=== PATIENT | female | born 1950 | race Caucasian/White ===

== ENCOUNTER 2024-03-29 09:15 | Inpatient (IN) | payer OTHER, MEDICAID ==
[~2024-03-29] VITALS: Ht 160 cm; Wt 60.0 kg
--- NOTE | 2024-03-29 09:34 | ED.PDOC ---
HPI Comments 74 year old female NIKOLAI presents to the ED with chief complaint of syncope. EMS reports according to family of patient, patient went to the bathroom and had a syncopal episode when getting up from the toilet. EMS relays patient was found to be on the floor of the bathroom and patient has had one word responses along with appearing very fatigued. EMS states when patient was lifted up, she had another syncopal episode. EMS notes patient has history of Rhabdomyolysis and is currently wheelchair bound due to not having a lot of strength in her legs. Patient denies any chest pain, SOB, dizziness, N/V/D, or fever. Time Seen by MD: 09:30 Reviewed Notes: Nurses Notes, Medications, Allergies Information Source: Patient, Emergency Med Personnel Mode of Arrival: EMS Severity: Moderate Timing: Hours Duration: Since onset Prehospital treatment: None Onset: At Rest Cardiac Risk Factors: Hyperlipidemia PE Risk Factors: None Associated Signs and Symptoms: Syncope Past Medical History PAST MEDICAL HISTORY: High Lipids Surgical History: Denies all surgeries CONFIDENTIAL SECRETARY History: Denies all CONFIDENTIAL SECRETARY Hx Family History Family History: Reviewed,noncontributory to illness Social History Smoker: Non-Smoker Alcohol: Denies ETOH Use Drugs: Denies Drug Use Lives In: Home Constitutional: reports: fatigue; denies: chills, diaphoresis, fever, malaise, sweats, weakness, others EENTM: denies: blurred vision, double vision, ear bleeding, ear discharge, ear drainage, ear pain, ear ringing, eye pain, eye redness, hearing loss, mouth pain, mouth swelling, nasal discharge, nose bleeding, nose congestion, nose pain, photophobia, tearing, throat pain, throat swelling, voice changes, others Respiratory: denies: cough, hemoptysis, orthopnea, SOB at rest, shortness of breath, SOB with excertion, stridor, wheezing, others Cardiovascular: reports: syncope; denies: chest pain, dizzy spells, diaphoresis, Dyspnea on exertion, edema, irregular heart beat, left arm pain, lightheadedness, palpitations, PND, others Gastrointestinal: denies: abdomen distended, abdominal pain, blood streaked bowels, constipated, diarrhea, dysphagia, difficulty swallowing, hematemesis, melena, nausea, poor appetite, poor fluid intake, rectal bleeding, rectal pain, vomiting, others Genitourinary: denies: abnormal vagina bleeding, burning, dyspareunia, dysuria, flank pain, frequency, hematuria, incontinence, pain, , vagina discharge, urgency, others Neurological: denies: dizziness, fainting, headache, left sided numbness, left sided weakness, numbness, paresthesia, pre-existing deficit, right sided numbness, right sided weakness, seizure, speech problems, tingling, tremors, weakness, others Musculoskeletal: denies: back pain, gout, joint pain, joint swelling, muscle pain, muscle stiffness, neck pain, others Integumetry: denies: bruises, change in color, change in hair/nails, dryness, laceration, lesions, lumps, rash, wounds, others Allergic/Immunocompromised: denies: Difficulty Healing, Frequent Infections, Hives, Itching, others Hematologic/Lymphatic: denies: anemia, blood clots, easy bleeding, easy bruising, swollen glands, others Endocrine: denies: excessive hunger, excessive sweating, excessive thirst, excessive urination, flushing, intolerance to cold, intolerance to heat, unexplained weight gain, unexplained weight loss, others Psychiatric: denies: anxiety, bipolar disorder, depression, hopeless, panic disorder, schizophrenia, sleepless, suicidal, others All Other Systems: Reviewed and Negative Physical Exam General Appearance: Moderate Distress, Normal HEENT: Normal ENT Inspection, PERRL/EOMI Neck: Full Range of Motion, Non-Tender, Normal, Normal Inspection Respiratory: Chest Non-Tender, Lungs Clear, No Accessory Muscle Use, No Respiratory Distress, Normal Breath Sounds Cardiovascular: No Edema, No JVD, No Murmur, No Gallop, Normal Peripheral Pulses, Regular Rate/Rhythm Breast Exam: Deferred Gastrointestinal: No Organomegaly, Non Tender, No Pulsatile Mass, Normal Bowel Sounds, Soft Genitalia: Deferred Pelvic: Deferred Rectal: Deferred Extremities: No calf tenderness, Normal capillary refill, Normal inspection, Normal range of motion, Non-tender, No pedal edema Musculoskeletal : Apperance: Normal Neurologic: Alert, fast 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 Was a procedure done?: No CP Differential Dx Differential Diagnosis: A-fib, A-Flutter, Angina, Anxiety / Panic Attack, Atrial Dysrhythmia, Electrolyte Disorder X-Ray, Labs, Meds, VS Vital Signs Date Time Temp Pulse Resp B/P (MAP) Pulse Ox O2 Delivery O2 Flow Rate FiO2 03/29/24 09:56 97.8 68 14 130/72 (91) 96 03/29/24 09:44 62 18 113/50 (71) 98 03/29/24 09:25 65 Lab Test 03/29/24 09:38 Range/Units White Blood Count 7.9 4.4-10.8 10^3/uL Red Blood Count 5.04 4.0-5.20 10^6/uL Hemoglobin 14.5 12.2-16.2 g/dL Hematocrit 45.0 36.0-46.0 % Mean Corpuscular Volume 89.3 80.0-100.0 fL Mean Corpuscular Hemoglobin 28.8 28.0-32.0 pg Mean Corpuscular Hemoglobin Concent 32.2 32.0-36.0 g/dL Red Cell Distribution Width 16.3 H 11.8-14.3 % Platelet Count 338 140-450 10^3/uL Mean Platelet Volume 7.0 6.9-10.8 fL Neutrophils (%) (Auto) 60.8 37.0-80.0 % Lymphocytes (%) (Auto) 33.3 10.0-50.0 % Monocytes (%) (Auto) 5.4 0.0-12.0 % Eosinophils (%) (Auto) 0.3 0.0-7.0 % Basophils (%) (Auto) 0.2 0.0-2.0 % Neutrophils # (Auto) 4.8 1.6-8.6 10 ^3/uL Lymphocytes # (Auto) 2.6 0.4-5.4 10 ^3/uL Monocytes # (Auto) 0.4 0-1.3 10 ^3/uL Eosinophils # (Auto) 0 0-0.8 10 ^3/uL Basophils # (Auto) 0 0-0.2 10 ^3/uL Nucleated Red Blood Cells 0.1 % Sodium Level 142 136-145 mmol/L Potassium Level 4.3 3.5-5.1 mmol/L Chloride Level 106 98-107 mmol/L Carbon Dioxide Level 31 20-31 mmol/L Anion Gap 5 5-15 Blood Urea Nitrogen 12 9-23 mg/dL Creatinine 0.51 L 0.550-1.02 mg/dL Glomerular Filtration Rate Calc 99 >90 mL/min BUN/Creatinine Ratio 23.5 H 10.0-20.0 Serum Glucose 108 H 74-106 mg/dL Calcium Level 9.4 8.7-10.4 mg/dL Creatine Kinase 2007 H 34-145 U/L Troponin I High Sensitivity 41 *H </=34 ng/L Current Medications Medications (Trade) Dose Ordered Sig/Fareed Route Start Time Stop Time Status Last Admin Sodium Chloride 1,000 ml @ 1,000 mls/hr Q1H ONCE IV 03/29/24 09:30 03/29/24 10:29 DC 03/29/24 09:44 Sodium Chloride 1,000 ml @ 1,000 mls/hr Q1H ONCE IV 03/29/24 11:45 03/29/24 12:44 DC 03/29/24 12:14 Enoxaparin Sodium (Lovenox) 70 mg ONCE ONCE SC 03/29/24 11:45 03/29/24 11:46 DC 03/29/24 12:14 Patient alert. Possible syncope. Moving all extremities. Vitals stable. CK elevated pain Rhabdomyolysis. Cardiac marker elevated. EKG reviewed does not show any acute changes. Establish intravenous access. Was given fluids. Was given bicarb. Nephrology consultation. History of rhabdomyolysis. Was given Lovenox. Reviewed her previous visit. Explained to the patient. Continue cardiac monitoring. Perry approved inpatient admission [id number]. Time of 1ST Reevaluation: 10:30 Reevaluation 1ST: Unchanged Patient Education/Counseling: Diagnosis, Treatment Family Education/Counseling: No Family Present Departure 1 Departure Time of Disposition: 11:32 Impression: Primary Impression: Syncope Qualified Codes: R55 - Syncope and collapse Additional Impressions: Rhabdomyolysis Qualified Codes: M62.82 - Rhabdomyolysis Demand ischemia Disposition: ADMITTED INPATIENT Admit to: Med Surg Condition: Guarded Critical Care Note Critical Care Time?: Yes (90 min-critical care time only) Stability Stability form required: No Heart Score Heart Score: Heart Score Response (Comments) Value History Moderate Suspicious 1 EKG Normal 0 Age >65 2 Risk Factors 1 or 2 risk factors 1 Troponin 1-2 x's Normal limit 1 Total 5 I personally scribed for DAYAN PADRON MD ([email or web address]) on 03/29/24 at 09:34. Electronically submitted by Juan Pablo Peacock ([email or web address]). DAYAN PADRON MD Mar 29, 2024 09:34
[2024-03-29] MEDS: SODIUM CHLORIDE 0.9% 1,000 ML IV ONE ×3 (09:44→22:23)
[2024-03-29 10:08] LABS: Basophils # (auto) 0 10 ^3/uL (0-0.2); Basophils % (auto) 0.2 % (0.0-2.0); Eosinophils # (auto) 0 10 ^3/uL (0-0.8); Eosinophils % (auto) 0.3 % (0.0-7.0); Hemoglobin 14.5 g/dL (12.2-16.2); Lymphocytes # (auto) 2.6 10 ^3/uL (0.4-5.4); Lymphocytes % (auto) 33.3 % (10.0-50.0); Mean Corpuscular Hemoglobin 28.8 pg (28.0-32.0); Mean Corpuscular Hgb Conc. 32.2 g/dL (32.0-36.0); Mean Corpuscular Volume 89.3 fL (80.0-100.0); Monocytes # (auto) 0.4 10 ^3/uL (0-1.3); Monocytes % (auto) 5.4 % (0.0-12.0); Neutrophils # (auto) 4.8 10 ^3/uL (1.6-8.6); Neutrophils % (auto) 60.8 % (37.0-80.0); Nucleated Red Blood Cells % 0.1 %; Platelet Count (auto) 338 10^3/uL (140-450); Red Blood Cells 5.04 10^6/uL (4.0-5.20); Red Cell Distribution Width 16.3 % (11.8-14.3); White Blood Cell 7.9 10^3/uL (4.4-10.8)
[2024-03-29 10:12] LABS: Chloride 106 mmol/L (98-107); Potassium 4.3 mmol/L (3.5-5.1); Sodium 142 mmol/L (136-145)
[2024-03-29 10:13] LABS: Anion Gap 5 (5-15); Calcium 9.4 mg/dL (8.7-10.4)
[2024-03-29 10:18] LABS: BUN/Creatinine Ratio 23.5 (10.0-20.0); Blood Urea Nitrogen 12 mg/dL (9-23)
[2024-03-29 10:37] LABS: Carbon Dioxide 31 mmol/L (20-31); Creatine Kinase IFCC 2007 U/L (34-145); Glucose 108 mg/dL (74-106)
[2024-03-29] MEDS: ENOXAPARIN SOD 80 MG/0.8ML SYRINGE SC ONE (12:14)
[2024-03-29] MEDS ORDERED: NITROGLYCERIN 0.4 MG SL TAB SL PRN (15:15)
[2024-03-29] MEDS: SODIUM CHLORIDE 0.9% 1,000 ML IV SCH (15:15)
[2024-03-29] MEDS ORDERED: ONDANSETRON HCL 4 MG/2 ML VIAL IV PRN (15:15)
[2024-03-29] MEDS ORDERED: MORPHINE SULFATE INJ 2 MG/ml SYRG IV PRN (15:15)
--- NOTE | 2024-03-29 15:25 | DVHHP2 ---
History of Present Illness Reason for Visit: Syncope History of Present Illness Ysabel Drake is a 74-year-old female with past medical history of hyperlipidemia and rhabdomyolysis who presents to the ED today for syncope x1 day. Patient states that she was in the bathroom having a bowel movement and daughter reports that she had a blank stare for about 10 minutes then came to. Patient reports that she was started on atorvastatin 1 year ago by her doctor at [facility] in [place] and states that she never had high cholesterol. Patient reports that 6 weeks ago she went to [facility] in [place] for a wellness checkup and her LFTs were high, her physician of advised her to come in every 3 days to get her LFTs checked and [place] [id number]. Then she was hospitalized in [place] for 1 week was given IVIG therapy for 3 days consistently. Patient states she then was discharged and then got readmitted again at [facility] in [place] for 5 days for weakness and also given IVIG therapy for 3 days consistently. Then was discharged to rehab for 2 weeks and got released yesterday. Patient is here today for evaluation. Patient denies any fevers, chills, chest pain, shortness of breath, abdominal pain, nausea, vomiting, diarrhea, dizziness, numbness, tingling, and paresthesia. Patient reports that she just recently moved in with her daughter because she is unable to care for herself because of the ongoing issue. Patient also reports that she is voiding just fine. 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) Family History: Other (Dad has Alzheimer's and of pneumonia at 76 years of age, mom of pancreatic cancer at 83 years of age, sister had cervical cancer in her 30s, and daughter has thyroid cancer living) Smoke: No ALCOHOL: occassional Drugs: None Lives: with Family Domestic Violence: Neg Review of Systems Constitutional: Yes: Weakness (Legs bilateral); No: Fever, Chills, Sweats, Malaise, Other Eyes: No: Pain, Vision change, Conjunctivae inflammation, Eyelid inflammation, Other, Redness ENT: No: Ear pain, Ear discharge, Nose pain, Nose discharge, Nose congestion, Mouth pain, Mouth swelling, Throat pain, Throat swelling, Other Respiratory: No: Cough, Dry, Shortness of breath, SOB with excertion, Wheezing, Hemoptysis, Pleuritic Pain, Sputum, Wheezing, Other Cardiovascular: No: Chest Pain, Palpitations, Orthopnea, Paroxysmal Noc. Dyspn ea, Edema, Lt Headedness, Other Gastrointestinal: No: Nausea, Vomiting, Abdominal Pain, Diarrhea, Constipation, Melena, Hematochezia, Other Genitourinary: No Dysuria, No Frequency, No Incontinence, No Hematuria, No Retention, No Other Musculoskeletal: No: other, neck pain, shoulder pain, arm pain, back pain, hand pain, leg pain, foot pain Skin: No: Rash, Lesions, Jaundice, Bruising, Other Neurological: No: Weakness, Numbness, Incoordination, Change in speech, Confusion, Seizures, Other Allergies: Coded Allergies: NO KNOWN ALLERGIES (Unverified , 03/29/24) Medications Current Medications Medications Dose Ordered Sig/Fareed Route Start Time Stop Time Status Last Admin Dose Admin Sodium Chloride 1,000 ml @ 100 mls/hr Q10H IV 03/29/24 15:15 UNV Enoxaparin Sodium 70 mg Q12HR SC 03/29/24 22:00 UNV Ondansetron HCl 4 mg Q4HP PRN IV 03/29/24 15:15 UNV Acetaminophen 650 mg Q6HP PRN PO 03/29/24 15:15 UNV Nitroglycerin 0.4 mg Q5MINP PRN SL 03/29/24 15:15 UNV Morphine Sulfate 2 mg Q30M PRN IV 03/29/24 15:15 UNV Exam Vital Signs Vital Signs Date Time Temp Pulse Resp B/P (MAP) Pulse Ox O2 Delivery O2 Flow Rate FiO2 03/29/24 13:04 98.1 72 16 138/68 (91) 96 98.1 General Appearance: Alert, Oriented X3, Cooperative, No acute distress HEENT: Atraumatic, PERRLA, EOMI, Mucous membr. moist/pink Respiratory: Clear to auscultation, Normal air movement Cardiovascular: Regular rate, Normal S1, Normal S2, No murmurs Abdominal: Normal bowel sounds, Soft, No tenderness, No hepatospenomegaly, No masses Extremities: No clubbing, No cyanosis, No edema, Normal pulses, No tenderness/swelling Skin: No rashes, No breakdown, No significant lesion Neuro: Normal speech, Strength at 5/5 X4 ext, Normal tone, Sensation intact, Other (Patient reports that legs are weak however better than 6 weeks ago.) Psych/Mental Status: Mental status NL, Mood NL Labs/Xrays Labs Test 03/29/24 09:38 Range/Units White Blood Count 7.9 4.4-10.8 10^3/uL Red Blood Count 5.04 4.0-5.20 10^6/uL Hemoglobin 14.5 12.2-16.2 g/dL Hematocrit 45.0 36.0-46.0 % Mean Corpuscular Volume 89.3 80.0-100.0 fL Mean Corpuscular Hemoglobin 28.8 28.0-32.0 pg Mean Corpuscular Hemoglobin Concent 32.2 32.0-36.0 g/dL Red Cell Distribution Width 16.3 H 11.8-14.3 % Platelet Count 338 140-450 10^3/uL Mean Platelet Volume 7.0 6.9-10.8 fL Neutrophils (%) (Auto) 60.8 37.0-80.0 % Lymphocytes (%) (Auto) 33.3 10.0-50.0 % Monocytes (%) (Auto) 5.4 0.0-12.0 % Eosinophils (%) (Auto) 0.3 0.0-7.0 % Basophils (%) (Auto) 0.2 0.0-2.0 % Neutrophils # (Auto) 4.8 1.6-8.6 10 ^3/uL Lymphocytes # (Auto) 2.6 0.4-5.4 10 ^3/uL Monocytes # (Auto) 0.4 0-1.3 10 ^3/uL Eosinophils # (Auto) 0 0-0.8 10 ^3/uL Basophils # (Auto) 0 0-0.2 10 ^3/uL Nucleated Red Blood Cells 0.1 % Sodium Level 142 136-145 mmol/L Potassium Level 4.3 3.5-5.1 mmol/L Chloride Level 106 98-107 mmol/L Carbon Dioxide Level 31 20-31 mmol/L Anion Gap 5 5-15 Blood Urea Nitrogen 12 9-23 mg/dL Creatinine 0.51 L 0.550-1.02 mg/dL Glomerular Filtration Rate Calc 99 >90 mL/min BUN/Creatinine Ratio 23.5 H 10.0-20.0 Serum Glucose 108 H 74-106 mg/dL Calcium Level 9.4 8.7-10.4 mg/dL Creatine Kinase 2007 H 34-145 U/L Troponin I High Sensitivity 41 *H </=34 ng/L Assessment/Plan Assessment/Plan Assessment/Plan: Syncope elevated CK Rhabdomyolysis labs am labs ekg ivf NaHCO3 - ordered by ER nephro cx - ordered by ER UA trend trop lipid Pain management Antiemetics HLD hold statin - patient reports poss cause of rhabdomyolysis FEN/PPX diet IVf DVT ppx - lovenox PUD ppx not indicated patient has no history of GERD or GI bleed Discussed plan of care with patient and nurse Home medications reconciled Admit to tele Plan discussed with: Patient, Daughter My Orders Orders - 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 Procedure Category Date Status Time Sodium Chloride 0.9% PHA 03/29/24 Logged 15:15 Enoxaparin Sodium PHA 03/29/24 Logged (Lovenox) 22:00 Admit ADMIT 03/29/24 Transmitted 15:07 Allergies [facility] 03/29/24 In Process 15:07 Code Status CODE 03/29/24 Transmitted 15:07 Ondansetron Hcl PHA 03/29/24 Logged (Zofran) 15:15 Complete Blood Count LAB 03/30/24 Verified 04:00 Comprehensive LAB 03/30/24 Verified Metabolic Panel 04:00 Cardiac DIET 03/29/24 Transmitted Diet-2gna,Lofat,Lochol Dinner Acetaminophen Tablet PHA 03/29/24 Logged (Tylenol Tablet) 15:15 Nitroglycerin PHA 03/29/24 Logged Sublingual (Ntrostat 15:15 Morphine Sulfate PHA 03/29/24 Logged Injection 15:15 Stat Ekg For Chest [facility] 03/29/24 In Process Pain 15:07 Notify Md Of Changes [facility] 03/29/24 In Process From Base 15:07 Information Technology Technician For [facility] 03/29/24 In Process 24 Hours 15:07 Emergency Dysrhythmia [facility] 03/29/24 In Process Protocol 15:07 Rhythm Strips Once [facility] 03/29/24 In Process Every Shift 15:07 Oxygen By Nasal RT 03/29/24 Transmitted Cannula 15:07 Browning Processor [facility] 03/29/24 In Process 15:07 Lipid Panel LAB 03/29/24 Logged 15:11 Troponin-I Hs LAB 03/29/24 Logged 15:11 Troponin-I Hs LAB 03/29/24 Logged 16:11 Troponin-I Hs LAB 03/29/24 Logged 18:11 Date of Service: Mar 29, 2024 Billing Provider: NGUYEN VILLALBA Common Visit Codes: [id number] INP/OBS CARE (MOD) NGUYEN VILLALBA Mar 29, 2024 15:25
[2024-03-29 16:06] LABS: Triglycerides 149 mg/dL (< 150)
[2024-03-29 16:08] LABS: Cholesterol 195 mg/dL (< 200)
[2024-03-29 16:10] LABS: HDL Cholesterol 61 mg/dL (40-59); LDL Cholesterol 115 mg/dL (< 100)
--- NOTE | 2024-03-29 18:50 | ECG ---
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
[2024-03-29] MEDS: SODIUM BICARB 8.4% 50Meq/50ml SYR Vial IV ONE (22:24)
[2024-03-29] MEDS: ENOXAPARIN SOD 100 MG/1 ML SYRINGE SC SCH (22:30)
[2024-03-29 22:50] VITALS: PULSE 84; RESP 13; O2SAT 97
[2024-03-29 23:01] VITALS: PULSE 85; RESP 18; O2SAT 95
[2024-03-29] MEDS ORDERED: PRED20TA2 PO (23:15)
[2024-03-29] MEDS ORDERED: OMEP1CAP70 PO (23:15)
[2024-03-29] MEDS ORDERED: ONDA-188 PO (23:16)
[2024-03-29] MEDS ORDERED: POLY335015 PO (23:19)
[2024-03-29] MEDS ORDERED: CYAN100056 PO (23:19)
[2024-03-30] VITALS (7 sets, daily range): BP systolic 104–113; BP diastolic 35–64; PULSE 72–94; RESP 16–18; TEMP 98–98.2; O2SAT 93–95
[2024-03-30 07:30] LABS: Basophils # (auto) 0 10 ^3/uL (0-0.2); Basophils % (auto) 0.5 % (0.0-2.0); Eosinophils # (auto) 0 10 ^3/uL (0-0.8); Eosinophils % (auto) 0.5 % (0.0-7.0); Hematocrit 36.2 % (36.0-46.0); Hemoglobin 12.1 g/dL (12.2-16.2); Lymphocytes # (auto) 1.9 10 ^3/uL (0.4-5.4); Mean Corpuscular Hemoglobin 29.3 pg (28.0-32.0); Mean Corpuscular Hgb Conc. 33.5 g/dL (32.0-36.0); Mean Corpuscular Volume 87.5 fL (80.0-100.0); Monocytes # (auto) 0.3 10 ^3/uL (0-1.3); Monocytes % (auto) 5.8 % (0.0-12.0); Neutrophils % (auto) 57.2 % (37.0-80.0); Nucleated Red Blood Cells % 0.2 %; Platelet Count (auto) 285 10^3/uL (140-450); Red Blood Cells 4.13 10^6/uL (4.0-5.20); Red Cell Distribution Width 16.1 % (11.8-14.3); White Blood Cell 5.3 10^3/uL (4.4-10.8)
[2024-03-30 07:45] LABS: Alkaline Phosphatase 64 U/L (46-116); Anion Gap 5 (5-15); BUN/Creatinine Ratio 18.8 (10.0-20.0); Chloride 106 mmol/L (98-107); Glucose 82 mg/dL (74-106); Potassium 3.6 mmol/L (3.5-5.1); Sodium 142 mmol/L (136-145)
[2024-03-30 07:46] LABS: Bilirubin, Total 0.5 mg/dL (0.2-1.0)
[2024-03-30 07:52] LABS: Alanine Aminotransferase 242 U/L (7-40); Albumin 2.6 g/dL (3.2-4.8); Aspartate Aminotransferase 213 U/L (13-40); Blood Urea Nitrogen 6 mg/dL (9-23); Calcium 8.2 mg/dL (8.7-10.4); Carbon Dioxide 31 mmol/L (20-31); Total Protein 4.8 g/dL (5.7-8.2)
[2024-03-30 07:59] LABS: Creatine Kinase IFCC 3224 U/L (34-145)
--- NOTE | 2024-03-30 09:24 | DVHINCON2 ---
Date of service: Mar 30, [address] Coyne Reason for Consultation Acute rhabdomyolysis History of Present Illness Patient is 74-year-old female with past medical history of hyperlipidemia is admitted status post syncopal episode at home admission patient found to have elevated CPK nephrology is consulted for acute rhabdomyolysis Past Medical History Hyperlipidemia Past Surgical History Patient denies Allergies: Coded Allergies: NO KNOWN ALLERGIES (Unverified , 03/29/24) Home Meds Reported Medications Cyanocobalamin (B-12) 1,000 Mcg Cap, 1000 MCG PO DAILY, CAP 03/29/24 Polyethylene Glycol 3350 (Miralax) 17 Gm Pow, 17 GM PO DAILY PRN for FOR CONSTIPATION, POW 03/29/24 Ondansetron HCl (Ondansetron Hydrochloride) 4 Mg Tab, 4 MG PO Q6HPRN PRN for NAUSEA / VOMITING, TAB 03/29/24 Prednisone (Prednisone) 20 Mg Tab, 3 TAB PO DAILY 03/29/24 Omeprazole (Omeprazole Dr) 20 Mg Cap, 40 MG PO DAILY 03/29/24 Current Medications Current Medications Medications (Trade) Dose Ordered Sig/Fareed Route PRN Reason Start Time Stop Time Status Last Admin Sodium Chloride 1,000 ml @ 100 mls/hr Q10H IV 03/29/24 15:15 03/29/24 23:32 Enoxaparin Sodium (Lovenox) 70 mg Q12HR SC 03/29/24 22:00 03/29/24 22:30 Ondansetron HCl (Zofran) 4 mg Q4HP PRN IV NAUSEA / VOMITING 03/29/24 15:15 Acetaminophen (Tylenol Tablet) 650 mg Q6HP PRN PO PAIN SCALE 1-3 OR TEMP>100.4 03/29/24 15:15 Nitroglycerin (Ntrostat Sublingual) 0.4 mg Q5MINP PRN SL FOR CHEST PAIN 03/29/24 15:15 Morphine Sulfate 2 mg Q30M PRN IV FOR CHEST PAIN 03/29/24 15:15 Family History: Alzheimer's disease G8 FATHER, , Age: 60 years and older FH: pancreatic cancer G8 MOTHER, , Age: 60 years and older FH: pneumonia G8 FATHER, , Age: 60 years and older Review of Systems All 12 item review of systems reviewed with the patient nonsignificant except what is mentioned in the history of present illness H&P Exam Vital Signs/I&O Vital Sign Date Time Temp Pulse Resp B/P (MAP) Pulse Ox O2 Delivery O2 Flow Rate FiO2 03/30/24 08:46 98.1 82 18 110/64 (79) 95 98.1 03/29/24 23:01 Room Air* 0 21 l Intake and Output 03/29/24 03/30/24 19:00 07:00 Intake Total 800 ml Balance 800 ml Intake Oral 100 ml IV Total 700 ml # Voids 2 # Bowel Movements 1 Physical Exam Patient is awake alert Lungs clear to auscultation bilaterally Cardiac exam regular rate and rhythm GI soft nontender normal Extremities no clubbing cyanosis or edema Neuro nonfocal Labs/Diagnostic Data Labs/Diagnostic Data Laboratory Tests Test 03/30/24 06:37 03/29/24 18:01 03/29/24 15:19 03/29/24 09:38 Range/Units White Blood Count 5.3 # 7.9 4.4-10.8 10^3/uL Red Blood Count 4.13 5.04 4.0-5.20 10^6/uL Hemoglobin 12.1 #L 14.5 12.2-16.2 g/dL Hematocrit 36.2 # 45.0 36.0-46.0 % Mean Corpuscular Volume 87.5 89.3 80.0-100.0 fL Mean Corpuscular Hemoglobin 29.3 28.8 28.0-32.0 pg Mean Corpuscular Hemoglobin Concent 33.5 32.2 32.0-36.0 g/dL Red Cell Distribution Width 16.1 H 16.3 H 11.8-14.3 % Platelet Count 285 338 140-450 10^3/uL Mean Platelet Volume 7.1 7.0 6.9-10.8 fL Neutrophils (%) (Auto) 57.2 60.8 37.0-80.0 % Lymphocytes (%) (Auto) 36.0 33.3 10.0-50.0 % Monocytes (%) (Auto) 5.8 5.4 0.0-12.0 % Eosinophils (%) (Auto) 0.5 0.3 0.0-7.0 % Basophils (%) (Auto) 0.5 0.2 0.0-2.0 % Neutrophils # (Auto) 3.0 4.8 1.6-8.6 10 ^3/uL Lymphocytes # (Auto) 1.9 2.6 0.4-5.4 10 ^3/uL Monocytes # (Auto) 0.3 0.4 0-1.3 10 ^3/uL Eosinophils # (Auto) 0 0 0-0.8 10 ^3/uL Basophils # (Auto) 0 0 0-0.2 10 ^3/uL Nucleated Red Blood Cells 0.2 0.1 % Sodium Level 142 142 136-145 mmol/L Potassium Level 3.6 4.3 3.5-5.1 mmol/L Chloride Level 106 106 98-107 mmol/L Carbon Dioxide Level 31 31 20-31 mmol/L Anion Gap 5 5 5-15 Blood Urea Nitrogen 6 L 12 9-23 mg/dL Creatinine 0.32 #L 0.51 L 0.550-1.02 mg/dL Glomerular Filtration Rate Calc 110 99 >90 mL/min BUN/Creatinine Ratio 18.8 23.5 H 10.0-20.0 Serum Glucose 82 108 H 74-106 mg/dL Calcium Level 8.2 L 9.4 8.7-10.4 mg/dL Total Bilirubin 0.5 0.2-1.0 mg/dL Aspartate Amino Transferase (AST) 213 H 13-40 U/L Alanine Aminotransferase (ALT) 242 H 7-40 U/L Alkaline Phosphatase 64 46-116 U/L Creatine Kinase 3224 H 2007 H 34-145 U/L Total Protein 4.8 L 5.7-8.2 g/dL Albumin 2.6 L 3.2-4.8 g/dL Troponin I High Sensitivity 38 *H 38 *H 41 *H </=34 ng/L Triglycerides Level 149 < 150 mg/dL Cholesterol Level 195 < 200 mg/dL LDL Cholesterol 115 H < 100 mg/dL HDL Cholesterol 61 H 40-59 mg/dL Assessment Acute rhabdomyolysis Status post syncope Hyperlipidemia NSTEMI Recommendations Kidney function is normal Closely monitor fluid and electrolytes Avoid nephrotoxic medication Morin catheter strict I&Os I agree with IV fluid hydration Check TSH, free T4 Check urinalysis and urine electrolytes Cardiology consult We will continue to follow Patient seen and examined by myself. I discussed my plan of care with the patient and primary nurse at the bedside I would like to thank for the consult, will follow up Plan discussed with: Patient MI TYSON MD Mar 30, 2024 09:24
[2024-03-30 10:16] LABS: Phosphorus 3.5 mg/dL (2.4-5.1)
[2024-03-30 12:09] LABS: Protein, Urine 17.5 mg/dL (1-14)
[2024-03-30 12:10] LABS: Urine Bacteria FEW /hpf (None Seen); Urine Blood 1+ /uL (Negative); Urine Clarity Clear (Clear); Urine Color Light-Yellow (Yellow); Urine Mucus FEW (None Seen); Urine Protein, UAD Negative (Negative); Urine Specific Gravity 1.009 (1.001-1.035); Urine Urobilinogen Normal (Negative); Urine WBC 4 /hpf (0 - 5); Urine pH 7.5 (5.0-9.0)
[2024-03-30 12:12] LABS: Creatinine, Urine 17.45 mg/dL (30.0-125.0)
[2024-03-30 14:49] LABS: Amphetamine Screen, Urine Neg (NEGATIVE); Barbiturate Scree,Urine Neg (NEGATIVE); Benzodiazephine Screen, Urine Neg (NEGATIVE); Cannabinoid Screen, Urine Neg (NEGATIVE); Cocaine Screen, Urine Neg (NEGATIVE); Opiate Scree,Urine Neg (NEGATIVE); Phencyclidine Screen, Urine Neg (NEGATIVE)
--- NOTE | 2024-03-30 15:54 | DVHSR ---
APPROVED REPORT EXAM: Two-dimensional and M-mode echocardiogram with Doppler and color Doppler. Blood Pressure: 111/58 mmHg INDICATION Syncope RISK FACTORS Height: 63, Weight: 129 DIMENSIONS LVDd3.9 (3.8-5.7cm)LA (2D)3.9 (1.9-4.0cm)Aortic Root3.3 (2.0-3.7cm) LVDs2.8 (2.5-4.0cm)LA (MM) (1.9-4.0cm)Aortic Cusp Exc1.3 (1.5-2.0cm) EF (%) 55.0 (55-70%)Rt. Atrium3.6 (1.9-4.0cm)Asc. Aorta cm Mitral Valve MitralMitral Stenosis E wave0.72m/sMV Mean GR.mmHg A wave1.09m/sMV Peak GR.54mmHg E/A ratio0.72D MVAcm2 DECEL [id number] 1/2 [id number] IVRTmsDop MVA3.77cm2 Aortic Valve Aortic ValveAortic Stenosis V11.18m/Angel Mean GR.3mmHg V21.23m/Angel Peak GR.6mmHg LVOT Diameter1.7 (1.8-2.4cm)Doppler AVA2.18cm2 Pulmonic Valve V20.92m/s Tricuspid Valve TR Velocity2.19m/s [id number] Other Information Technically limited study due to body habitus and patient position. Conclusion MILD LVH AND MILD LV DIASTOLIC DYSFUNCTION LV EJECTION FRACTION IS 65% NORMAL VALVES NO EFFUSION NORMAL RV FUNCTION RVSP IS 22 MM OF HG AND IS NORMAL
--- NOTE | 2024-03-30 16:08 | DVH ---
CAROTID DOPPLER ULTRASOUND HISTORY: syncope COMPARISON: None TECHNIQUE: Real time lovelace scale, color Doppler, and spectral duplex images are obtained through the c arotid and vertebral arteries. Findings: Peak systolic velocity right internal carotid artery is 109 cm/s and right common carotid artery is 9 6 cm/s. Ratio is 1.1. Antegrade flow noted in right vertebral artery. No significant atherosclerotic plaque noted within the right carotid arterial system. Peak systolic velocity left internal carotid artery is 96 cm/s and left common carotid artery is 80 c m/s. Ratio is 1.2. Antegrade flow noted in left vertebral artery. No significant atherosclerotic plaq ue noted within the left carotid arterial system. Impression: 1. No evidence of hemodynamically significant stenosis within the bilateral carotid arterial systems. 2. Antegrade flow within bilateral vertebral arteries.
--- NOTE | 2024-03-30 17:08 | DVHPNRES ---
Progress Note Date Seen: Mar 30, 2024 Resident Creating Document: NORBERT CASPER RESIDENT Medical Necessity Reason Pt with a Central, PICC or Fol: No Subjective Review of Systems Ysabel Drake is a 74-year-old female with a past medical history significant for hyperlipidemia and rhabdomyolysis who presents to the ED for evaluation of syncope. The patient reports that she has experienced generalized weakness, dizziness, and difficulty ambulating over the past few weeks. She recalls a syncopal episode today, which was preceded by a bowel movement. Additionally, she notes a blank stare lasting approximately 10 minutes after the event. The patient states she was started on atorvastatin one year ago by her physician at [place], but she experienced myalgias and was later diagnosed with rhabdomyolysis, prompting discontinuation of the medication. Six weeks ago, she visited [place] for a wellness checkup, where abnormal liver function tests were noted. Repeat LFTs every 3 days over the subsequent week showed persistently elevated levels, prompting IVIG therapy for 3 days while hospitalized for a week. She was then transferred to a rehabilitation facility for two weeks and discharged shortly afterward. The patient denies chest pain, shortness of breath, abdominal pain, nausea, or recent trauma. However, she reports ongoing dizziness, tingling, and weakness in her extremities. She has been unable to care for herself due to these symptoms, with her daughter providing assistance. The patient states she is voiding without issue. Family history is notable for Alzheimers in her father, pancreatic cancer in her mother, and thyroid cancer in her daughter. The patient denies smoking or illicit drug use and drinks alcohol occasionally. 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 A neurological consult has been ordered for further evaluation. Patient not stable for tranfer to [facility] at this moment. Review of systems Constitutional: No: Fever, Chills, Sweats, Weakness, Malaise, Other Eyes: No: Pain, Vision change, Conjunctivae inflammation, Eyelid inflammation, Other, Redness ENT: No: Ear pain, Ear discharge, Nose pain, Nose discharge, Nose congestion, Mouth pain, Mouth swelling, Throat pain, Throat swelling, Other Respiratory: No Wheezing, Hemoptysis, Pleuritic Pain, Sputum, Wheezing, Other Cardiovascular: No: Chest Pain, Palpitations, Orthopnea, Paroxysmal Noc. Dyspnea, Edema, Lt Headedness, Other Gastrointestinal: No: Nausea, Vomiting, Abdominal Pain, Diarrhea, Constipation, Melena, Hematochezia, Other Musculoskeletal: Yes, lower extremity weakness and 2+ edema No: other, neck pain, shoulder pain, arm pain, back pain, hand pain Neurological: Yes: Weakness, Numbness, Incoordination Patient reports: No new complaints Objective vital signs Vital Sign Date Time Temp Pulse Resp B/P (MAP) Pulse Ox O2 Delivery O2 Flow Rate FiO2 03/30/24 16:52 98.0 83 18 113/63 (80) 94 98.0 03/29/24 23:01 Room Air* 0 21 Total Intake and Output 03/29/24 03/29/24 03/30/24 15:00 23:00 07:00 Intake Total 800 ml Balance 800 ml medications Current Medications Medications Dose Ordered Sig/Fareed Route Start Time Stop Time Status Last Admin Dose Admin Sodium Chloride 1,000 ml @ 100 mls/hr Q10H IV 03/29/24 15:15 03/30/24 12:07 100 MLS/HR Ondansetron HCl 4 mg Q4HP PRN IV 03/29/24 15:15 Acetaminophen 650 mg Q6HP PRN PO 03/29/24 15:15 Nitroglycerin 0.4 mg Q5MINP PRN SL 03/29/24 15:15 Morphine Sulfate 2 mg Q30M PRN IV 03/29/24 15:15 Enoxaparin Sodium 40 mg DAILY SC 03/31/24 10:00 Examination Examination General Appearance: Alert, Oriented X3, Cooperative, No acute distress Respiratory: Clear to auscultation, Normal air movement Cardiovascular: Regular rate, Normal S1, Normal S2 Abdominal: Normal bowel sounds Extremities: Yes: Lower extremity Edema 2+ No cyanosis, Normal pulses, No tenderness/swelling Skin: No rashes, No breakdown Neuro: Unable to walk , Normal speech, Strength at 2/5 lower extremities, Normal tone, Sensation intact, Reflexes 2+ Psych/Mental Status: Mental status NL, Mood NL laboratory and microbiology Laboratory Tests 03/30/24 06:37 Test 03/30/24 06:37 Range/Units Serum Glucose 82 74-106 mg/dL Microbiology Date/Time Source Procedure Growth Status 03/29/24 23:35 Nose MRSA Screen - Final Complete Problem List/Assessment/Plan Problem List/Assessment/Plan Acute rhabdomyolysis likely due to prolonged immobilization 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 - Neurology consult - CK 3224 - IV fluids - physical therapy - obtain medical records from [facility] - prophylactic lovenox NSTEMI type 2 - echo 2D - Hyperlipidemia -atorvastatin held for now Status post syncope - Carotid doppler - monitor transaminitis - treat underlying condition Patient not stable for transfer to [facility] at this time case discussed with Goals of care discussed with the patient for 29 minutes Code status: Full code Plan discussed with: Patient, Daughter My Orders My Orders Orders - NORBERT CASPER Procedure Category Date Status Time Vitamin B12 LAB 03/30/24 In Process 14:04 Vitamin D, 25-Hydroxy LAB 03/30/24 In Process 14:04 Echo 2d Mode Cardiac US 03/30/24 Resulted DOP 14:04 Carotid Duplx W Color US 03/30/24 Resulted DOP 14:14 * Neurology Consult CONS 03/30/24 Transmitted 15:05 Pt Request For Service PT 03/30/24 Logged 15:05 Obtain Mr From Other ORDERS 03/30/24 Transmitted Facility 15:05 Enoxaparin Sodium PHA 03/31/24 In Process (Lovenox) 10:00 Date of Service: Mar 30, 2024 Billing Provider: KELLY ARIZA MD Common Visit Codes: [id number] INP/OBS CARE(HIGH) Secondary Visit Codes: [id number] CARE PLAN 30 MINUTES NORBERT CASPER RESIDENT Mar 30, 2024 17:08 KELLY ARIZA MD Apr 01, 2024 20:18
[2024-03-31] VITALS (7 sets, daily range): BP systolic 106–119; BP diastolic 63–80; PULSE 77–90; RESP 16–18; TEMP 98–98.1; O2SAT 91–95
[2024-03-31] MEDS: ACETAMINOPHEN 325 MG TAB PO PRN (05:10)
[2024-03-31 07:04] LABS: Basophils # (auto) 0 10 ^3/uL (0-0.2); Basophils % (auto) 0.8 % (0.0-2.0); Eosinophils # (auto) 0 10 ^3/uL (0-0.8); Eosinophils % (auto) 0.5 % (0.0-7.0); Hemoglobin 12.1 g/dL (12.2-16.2); Lymphocytes # (auto) 1.7 10 ^3/uL (0.4-5.4); Lymphocytes % (auto) 30.2 % (10.0-50.0); Mean Corpuscular Hemoglobin 29.6 pg (28.0-32.0); Mean Corpuscular Hgb Conc. 33.8 g/dL (32.0-36.0); Mean Corpuscular Volume 87.6 fL (80.0-100.0); Monocytes # (auto) 0.3 10 ^3/uL (0-1.3); Monocytes % (auto) 6.3 % (0.0-12.0); Neutrophils # (auto) 3.4 10 ^3/uL (1.6-8.6); Neutrophils % (auto) 62.2 % (37.0-80.0); Nucleated Red Blood Cells % 0.2 %; Platelet Count (auto) 264 10^3/uL (140-450); Red Blood Cells 4.11 10^6/uL (4.0-5.20); Red Cell Distribution Width 15.8 % (11.8-14.3); White Blood Cell 5.5 10^3/uL (4.4-10.8)
[2024-03-31 07:07] LABS: Sodium 143 mmol/L (136-145)
[2024-03-31 07:08] LABS: Anion Gap 6 (5-15); Carbon Dioxide 29 mmol/L (20-31)
[2024-03-31 07:13] LABS: BUN/Creatinine Ratio 16.7 (10.0-20.0); Blood Urea Nitrogen < 5 mg/dL (9-23); Chloride 108 mmol/L (98-107); Glucose 96 mg/dL (74-106); Potassium 3.1 mmol/L (3.5-5.1)
[2024-03-31] MEDS: ENOXAPARIN SOD 40 MG/0.4 ML SYRINGE SC SCH (09:38)
[2024-03-31] MEDS: POTASSIUM EFFERVESENT TAB 25 MEQ PO ONE (10:52)
[2024-03-31 11:32] LABS: Bilirubin, Direct 0.1 mg/dL (<0.3); Bilirubin, Total 0.4 mg/dL (0.2-1.0)
[2024-03-31 11:34] LABS: Albumin 2.6 g/dL (3.2-4.8); Total Protein 4.8 g/dL (5.7-8.2)
--- NOTE | 2024-03-31 11:34 | DVHPN2 ---
Progress Note Date Seen: Mar 31, 2024 Medical Necessity Reason Pt with a Central, PICC or Fol: No Objective vital signs Vital Sign Date Time Temp Pulse Resp B/P (MAP) Pulse Ox O2 Delivery O2 Flow Rate FiO2 03/31/24 09:00 98.0 77 18 106/63 (77) 91 98.0 03/30/24 20:00 Room Air* 0 21 Total Intake and Output 03/30/24 03/30/24 03/31/24 15:00 23:00 07:00 Intake Total 300 ml 900 ml 1450 ml Output Total 500 ml Balance 300 ml 900 ml 950 ml medications Current Medications Medications Dose Ordered Sig/Fareed Route Start Time Stop Time Status Last Admin Dose Admin Sodium Chloride 1,000 ml @ 100 mls/hr Q10H IV 03/29/24 15:15 03/31/24 01:00 100 MLS/HR Ondansetron HCl 4 mg Q4HP PRN IV 03/29/24 15:15 Acetaminophen 650 mg Q6HP PRN PO 03/29/24 15:15 03/31/24 05:10 650 MG Nitroglycerin 0.4 mg Q5MINP PRN SL 03/29/24 15:15 Morphine Sulfate 2 mg Q30M PRN IV 03/29/24 15:15 Enoxaparin Sodium 40 mg DAILY SC 03/31/24 10:00 03/31/24 09:38 40 MG Examination: GENERAL:Normal, CVS:Normal laboratory and microbiology Laboratory Tests 03/31/24 06:30 Test 03/31/24 06:30 Range/Units Serum Glucose 96 74-106 mg/dL Microbiology Date/Time Source Procedure Growth Status 03/29/24 23:35 Nose MRSA Screen - Final Complete Problem List/Assessment/Plan Problem List/Assessment/Plan Rhabdomyolysis preserved renal function syncope IVF hydration avoid hypotension monitor electorlytes trending cpk , no Hd indication Plan discussed with: Patient APRIL MILES MD Mar 31, 2024 11:34
--- NOTE | 2024-03-31 15:28 | DVHINCON2 ---
Date of service: Mar 31, [address] Richards Reason for Consultation Rule out Guillain-Mcallen History of Present Illness Ms. Drake is a 76 years old right-handed female with the he was dyslipidemia, the patient was admitted to the [facility] on 03/29/2024 with a chief company of syncopal event. At that time, she was alert and fully oriented, she provided the following. I have also reviewed the chart and talked to her nurse The patient was in a rehab for general weakness, muscle disease, and she was about to be discharged home. On 03/29/2024, was sitting on toilet bowl, she developed dizziness/lightheadedness, hot feeling, profuse sweating, blurry vision, nausea, and she passed out/became nonresponsive for several minutes with eyes rolling back. Meanwhile, the patient was upright on the toilet. 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 He denies skin rashes She she reports that she had negative liver biopsy, but she has not had muscle biopsy UDS, 03/30/2024: Negative Urinalysis, 03/30/24: WBC: 4, urine leukocyte esterase: Negative WBC/HB/PLT/MCV, 03/31/2024: 5.5/12.1/264/87.6 BMP, 03/31/24: Unremarkable TBI/AST/ALT/AP, 03/31/2024: 0.1/216/2026/60 HGB A1c, 03/30/2024: 508 CK, 03/29/2024: 2007, 03/30/2024: 3324, 03/31/2024: 2969 Vitamin B12, 03/2024: 206 TSH, 03/30/24: 3.73 Carotid Doppler, 03/30/2024: 1. No evidence of hemodynamically significant st enosis within the bilateral carotid arterial systems. 2. Antegrade flow within bilateral vertebral arteries Past Medical History Dyslipidemia Past Surgical History Right meniscus repair, Liver biopsy Family History: Alzheimer's disease G8 FATHER, , Age: 60 years and older FH: pancreatic cancer G8 MOTHER, , Age: 60 years and older FH: pneumonia G8 FATHER, , Age: 60 years and older Family History Diabetes, dementia, cancer Social History She was tobacco smoke, but no history of alcohol or recreational substances abuse Allergies: Coded Allergies: NO KNOWN ALLERGIES (Unverified , 03/29/24) Home Meds Reported Medications Cyanocobalamin (B-12) 1,000 Mcg Cap, 1000 MCG PO DAILY, CAP 03/29/24 Polyethylene Glycol 3350 (Miralax) 17 Gm Pow, 17 GM PO DAILY PRN for FOR CO NSTIPATION, POW 03/29/24 Ondansetron HCl (Ondansetron Hydrochloride) 4 Mg Tab, 4 MG PO Q6HPRN PRN for NAUSEA / VOMITING, TAB 03/29/24 Prednisone (Prednisone) 20 Mg Tab, 3 TAB PO DAILY 03/29/24 Omeprazole (Omeprazole Dr) 20 Mg Cap, 40 MG PO DAILY 03/29/24 Current Medications Current Medications Medications (Trade) Dose Ordered Sig/Fareed Route PRN Reason Start Time Stop Time Status Last Admin Enoxaparin Sodium (Lovenox) 40 mg DAILY SC 03/31/24 10:00 03/31/24 09:38 Review of Systems As above, the other systems are negative Vital Signs Vital Signs Date Time Temp Pulse Resp B/P (MAP) Pulse Ox O2 Delivery O2 Flow Rate FiO2 03/31/24 13:00 98.1 80 16 115/66 (82) 95 98.1 03/31/24 08:00 Room Air* 0 21 Physical Exam GENERAL EXAM: General: the patient is well developed and nourished. No acute distress. HEENT: Normocephalic, neck is supple, no carotid bruits. No mass. RESPIRATORY: Normal respiratory effort with symmetrical lung expansion. Lungs clear to auscultation. CARDIOVASCULAR: Regular rate and rhythm with no murmurs. S1, S2. ABDOMEN: Soft, nontender, normal bowel sound MUSCULOSKELETAL EXAM: No tenderness to palpation in the muscles NEUROLOGICAL: MENTAL STATUS: Awake and alert. Oriented to person, place, time and general circumstances. Able to give personal history. SPEECH, LANGUAGE, HIGHER CORTICAL FUNCTION: no aphasia or dysathria. CRANIAL NERVES: #2: Intact visual shea to confrontation. The optic discs were sharp. #3,4,6: Pupils are equal, round and reactive. EOMs full and conjugate. No nysta gmus. #5: Facial sensation intact in all three divisions bilaterally. Mandibular strength intact. #7: Facial muscles symmetrical and strength intact. #8: Hearing grossly normal to voice. #9,10: Uvula and soft palate rise in the midline. Swallow and voice are normal. #11: Trapezius and sternomastoid strength intact bilaterally. #12: Tongue midline. No fasciculations or atrophy. SENSATION: Sensation to touch and pinprick is normal. MOTOR: Normal tone in the upper and lower extremity. Normal muscle bulk. No fasciculations. No abnormal movements or posturing. Muscle strength of the major groups in the upper extremities is: Shoulder girdle: 4/5, distal: 4- 5/5. Muscle strength of the major groups in the lower extremities is: Pelvic girdle: 3-4/5, distal: 4/5. REFLEXES: Deep tendon reflexes are diffusely symmetrically diminished. No pathological reflexes. CEREBELLAR/COORDINATION: Finger to nose is normal bilaterally. GAIT/STATION: deferred. Labs/Diagnostic Data Labs Test 03/31/24 06:30 03/30/24 12:34 03/30/24 11:30 03/30/24 06:37 Range/Units White Blood Count 5.5 4.4-10.8 10^3/uL Red Blood Count 4.11 4.0-5.20 10^6/uL Hemoglobin 12.1 L 12.2-16.2 g/dL Hematocrit 36.0 36.0-46.0 % Mean Corpuscular Volume 87.6 80.0-100.0 fL Mean Corpuscular Hemoglobin 29.6 28.0-32.0 pg Mean Corpuscular Hemoglobin Concent 33.8 32.0-36.0 g/dL Red Cell Distribution Width 15.8 H 11.8-14.3 % Platelet Count 264 140-450 10^3/uL Mean Platelet Volume 7.0 6.9-10.8 fL Neutrophils (%) (Auto) 62.2 37.0-80.0 % Lymphocytes (%) (Auto) 30.2 10.0-50.0 % Monocytes (%) (Auto) 6.3 0.0-12.0 % Eosinophils (%) (Auto) 0.5 0.0-7.0 % Basophils (%) (Auto) 0.8 0.0-2.0 % Neutrophils # (Auto) 3.4 1.6-8.6 10 ^3/uL Lymphocytes # (Auto) 1.7 0.4-5.4 10 ^3/uL Monocytes # (Auto) 0.3 0-1.3 10 ^3/uL Eosinophils # (Auto) 0 0-0.8 10 ^3/uL Basophils # (Auto) 0 0-0.2 10 ^3/uL Nucleated Red Blood Cells 0.2 % Sodium Level 143 136-145 mmol/L Potassium Level 3.1 L 3.5-5.1 mmol/L Chloride Level 108 H 98-107 mmol/L Carbon Dioxide Level 29 20-31 mmol/L Anion Gap 6 5-15 Blood Urea Nitrogen < 5 L 9-23 mg/dL Creatinine 0.30 L 0.550-1.02 mg/dL Glomerular Filtration Rate Calc 112 >90 mL/min BUN/Creatinine Ratio 16.7 10.0-20.0 Serum Glucose 96 74-106 mg/dL Calcium Level 8.0 L 8.7-10.4 mg/dL Total Bilirubin 0.4 0.2-1.0 mg/dL Direct Bilirubin 0.1 <0.3 mg/dL Aspartate Amino Transferase (AST) 216 H 13-40 U/L Alanine Aminotransferase (ALT) 227 H 7-40 U/L Alkaline Phosphatase 60 46-116 U/L Creatine Kinase 2969 H 34-145 U/L Total Protein 4.8 L 5.7-8.2 g/dL Albumin 2.6 L 3.2-4.8 g/dL Vitamin B12 Level 206 L 211-911 pg/mL Vitamin D 25-Hydroxy 24.8 L 30.0-100 ng/mL Free Thyroxine (T4) Calculated 1.06 0.89-1.76 ng/dL Urine Color Light-yellow Yellow Urine Clarity Clear Clear Urine pH 7.5 5.0-9.0 Urine Specific Dodson 1.009 1.001-1.035 Urine Protein Negative Negative Urine Ketones Negative Negative Urine Blood 1+ H Negative /uL Urine Nitrite Negative Negative Urine Bilirubin Negative Negative Urine Urobilinogen Normal Negative mg/dL Urine Leukocyte Esterase Negative Negative /uL Urine RBC 2 0 - 4 /hpf Urine WBC 4 0 - 5 /hpf Urine Squamous Epithelial Cells Few <5 /hpf Urine Bacteria Few H None Seen /hpf Urine Mucus Few None Seen Urine Creatinine 17.45 L 30.0-125.0 mg/dL Urine Protein/Creatinine Ratio 1.00 Urine Sodium 143 40-220 mmol/L Urine Glucose Normal Normal mg/dL Urine Total Protein 17.5 H 1-14 mg/dL Urine Opiates Screen Neg NEGATIVE Urine Fentanyl Screen Neg NEGATIVE Urine Barbiturates Screen Neg NEGATIVE Urine Phencyclidine Screen Neg NEGATIVE Urine Amphetamines Screen Neg NEGATIVE Urine Benzodiazepines Screen Neg NEGATIVE Urine Cocaine Screen Neg NEGATIVE Urine Cannabinoids Screen Neg NEGATIVE Hemoglobin A1c 5.8 H <5.7 % A1C Phosphorus Level 3.5 2.4-5.1 mg/dL Magnesium Level 2.0 1.6-2.6 mg/dL Thyroid Stimulating Hormone (TSH) 3.73 0.55-4.78 uIU/mL Test 03/29/24 18:01 03/29/24 15:19 Range/Units Troponin I High Sensitivity 38 *H </=34 ng/L Triglycerides Level 149 < 150 mg/dL Cholesterol Level 195 < 200 mg/dL LDL Cholesterol 115 H < 100 mg/dL HDL Cholesterol 61 H 40-59 mg/dL Microbiology Date/Time Source Procedure Growth Status 03/29/24 23:35 Nose MRSA Screen - Final Complete Assessment General weakness Likely due to myopathy, I suspect polymyositis Rule out Guillain-Mcallen syndrome Rhabdomyolysis secondary to myositis ? Autoimmune disease ? Polymyositis ? Infectious myositis Gait disturbance secondary myopathy Passing out Syncope Rule out TIA Rule out partial complex seizure Plan/Recommendation Monitoring Supportive treatment Telemetry EEG MR brain scan Avoid Triptan DVT prophylaxis Up to chair Physical therapy Syncope precautions discussed Follow up with her [facility] on discharge Plan discussed with: Patient, Other TAI MEJIAS MD Mar 31, 2024 15:28
--- NOTE | 2024-03-31 16:39 | DVHPNRES ---
Progress Note Date Seen: Mar 31, 2024 Resident Creating Document: NORBERT CASPER RESIDENT Medical Necessity Reason Pt with a Central, PICC or Fol: No Subjective Review of Systems Ysabel Drake is a 74-year-old female with a past medical history significant for hyperlipidemia and rhabdomyolysis who presents to the ED for evaluation of syncope. The patient reports that she has experienced generalized weakness, dizziness, and difficulty ambulating over the past few weeks. She recalls a syncopal episode today, which was preceded by a bowel movement. Additionally, she notes a blank stare lasting approximately 10 minutes after the event. The patient states she was started on atorvastatin one year ago by her physician at [place], but she experienced myalgias and was later diagnosed with rhabdomyolysis, prompting discontinuation of the medication. Six weeks ago, she visited [place] for a wellness checkup, where abnormal liver function tests were noted. Repeat LFTs every 3 days over the subsequent week showed persistently elevated levels, prompting IVIG therapy for 3 days while hospitalized for a week. She was then transferred to a rehabilitation facility for two weeks and discharged shortly afterward. The patient denies chest pain, shortness of breath, abdominal pain, nausea, or recent trauma. However, she reports ongoing dizziness, tingling, and weakness in her extremities. She has been unable to care for herself due to these symptoms, with her daughter providing assistance. The patient states she is voiding without issue. Family history is notable for Alzheimers in her father, pancreatic cancer in her mother, and thyroid cancer in her daughter. The patient denies smoking or illicit drug use and drinks alcohol occasionally. Nephrology team recommend to continue monitoring creatinine kinase levels and neurology evaluated the patient for a general weakness likely due to myopathy, suspected polymyositis. And rhabdomyolysis secondary to myositis possibly autoimmune disease/polymyositis/infectious myositis, they recommend cardiology consult regarding the syncope episode. Their plan is continue monitoring the patient proceed with an electroencephalogram, MRI of the brain and follow-up with [facility] discharge. Per marriage and family social worker [place] case management associate from [place] call for reports she will start working on getting a patients bed at [facility] . it will depend on availability. Patient reports: Feels better Changes from previous H/P or p: Changes Objective vital signs Vital Sign Date Time Temp Pulse Resp B/P (MAP) Pulse Ox O2 Delivery O2 Flow Rate FiO2 03/31/24 13:00 98.1 80 16 115/66 (82 95 98.1 03/31/24 08:00 Room Air* 0 21 Total Intake and Output 03/30/24 03/30/24 03/31/24 15:00 23:00 07:00 Intake Total 300 ml 900 ml 1450 ml Output Total 500 ml Balance 300 ml 900 ml 950 ml medications Current Medications Medications Dose Ordered Sig/Fareed Route Start Time Stop Time Status Last Admin Dose Admin Sodium Chloride 1,000 ml @ 100 mls/hr Q10H IV 03/29/24 15:15 03/31/24 01:00 100 MLS/HR Ondansetron HCl 4 mg Q4HP PRN IV 03/29/24 15:15 Acetaminophen 650 mg Q6HP PRN PO 03/29/24 15:15 03/31/24 05:10 650 MG Nitroglycerin 0.4 mg Q5MINP PRN SL 03/29/24 15:15 Morphine Sulfate 2 mg Q30M PRN IV 03/29/24 15:15 Enoxaparin Sodium 40 mg DAILY SC 03/31/24 10:00 03/31/24 09:38 40 MG Examination: GENERAL:Normal, HEENT:Normal, NECK:Normal, LUNGS:Normal, CVS:Normal, ABDOMEN:Normal laboratory and microbiology Laboratory Tests 03/31/24 06:30 Test 03/31/24 06:30 Range/Units Serum Glucose 96 74-106 mg/dL Microbiology Date/Time Source Procedure Growth Status 03/29/24 23:35 Nose MRSA Screen - Final Complete Problem List/Assessment/Plan Problem List/Assessment/Plan Generalized weakness likely due to polymyositis, GBS ruled out Acute rhabdomyolysis likely due to prolonged immobilization - Neurology recommended MRI, EEG and Cardiology consult - CK improving - IV fluids - physical therapy - obtain medical records from [facility] - prophylactic lovenox - CK trends NSTEMI type 2 - echocardiogram unremarkable Hyperlipidemia -atorvastatin held for now Status post syncope - Carotid doppler - monitor - cardiology consult transaminitis - treat underlying condition Patient stable for transfer to [facility] at this time -marriage and family social worker working on the transfer case discussed with Goals of care discussed with the patient for 29 minutes Code status: Full code Plan discussed with: Patient My Orders My Orders Orders - NORBERT CASPER RESIDENT Procedure Category Date Status Time * [facility] CONS 12/23/24 Transmitted Consult Date of Service: Mar 31, 2024 Billing Provider: KELLY ARIZA MD Common Visit Codes: NOT BILLABLE NORBERT CASPER RESIDENT Mar 31, 2024 16:39 KELLY ARIZA MD Apr 01, 2024 20:18
--- NOTE | 2024-03-31 17:19 | DVHCONRES ---
Date Seen: Mar 31, 2024 Resident Creating Document: MARQUITA VILA RESIDENT Referring Physician Dr. Ontiveros History of Present Illness This is a 74-year-old female with recently diagnosed rhabdomyolysis and question autoimmune hepatitis presented to the ED after passing out on the toilet. According to the patient, on 03/29/2024, she was in the bathroom having a bowel movement when daughter noticed that she had a blank stare for few minutes; she was unresponsive with her eyes rolling backwards. Daughter described the patient as feeling hot, sweaty, clammy extremities. Daughter called the EMS services who brought her to the ED. denied any chest pain, palpitation, sweaty palms, diaphoresis or anxiety. Initials vitals included temp: 98.7, BP: 113/50--> 104/35, RR: 18 and pulse: 65.Initial lab work revealed, glucose 108, AST of 216, and ALT of 227 and CK of 2969. 12 lead EKG revealed T-wave inversion in the lateral leads V 4,V5 and V6. According to patient, Since 02/20/2024, She has been seeing doctors at [facility] every 3 days for her elevated liver enzymes. On one her visits, patient was told that she CK was over 11,000. She was therefore admitted at [facility] and managed for both the transaminitis and rhabdomyolysis for about 1 week. She received IVIG therapy for 3 days consistently. Patient stated that she was discharged but was readmitted again at [facility] in [place] for 5 days for weakness and also received IVIG therapy for 3 days. She was discharged a SNF for 2 weeks. It was SNF that that she experienced the syncopal episode and was brought to the ED for further evaluation. Per the patient, this was the 2nd syncopal episode. The 1st one she experienced was when she was on admission at [facility] Past Medical History Elevated liver enzyme, rhabdomyolysis Past Surgical History Right meniscal tear on the right knee--2004 Breast Tumor removed in 1967 Family History: Alzheimer's disease G8 FATHER, , Age: 60 years and older FH: pancreatic cancer G8 MOTHER, , Age: 60 years and older FH: pneumonia G8 FATHER, , Age: 60 years and older Family History Dad has Alzheimer's and of pneumonia at 76 years Mother: of pancreatic cancer at 83 years sister: cervical cancer in her 30s Daughter: thyroid cancer living) Social History Smoke: No ALCOHOL: occassional Drugs: None Lives: with Family Allergies: Coded Allergies: NO KNOWN ALLERGIES (Unverified , 03/29/24) Home Meds Reported Medications Cyanocobalamin (B-12) 1,000 Mcg Cap, 1000 MCG PO DAILY, CAP 03/29/24 Polyethylene Glycol 3350 (Miralax) 17 Gm Pow, 17 GM PO DAILY PRN for FOR CONSTIPATION, POW 03/29/24 Ondansetron HCl (Ondansetron Hydrochloride) 4 Mg Tab, 4 MG PO Q6HPRN PRN for NAUSEA / VOMITING, TAB 03/29/24 Prednisone (Prednisone) 20 Mg Tab, 3 TAB PO DAILY 03/29/24 Omeprazole (Omeprazole Dr) 20 Mg Cap, 40 MG PO DAILY 03/29/24 Current Medications Current Medications Medications (Trade) Dose Ordered Sig/Fareed Route PRN Reason Start Time Stop Time Status Last Admin Enoxaparin Sodium (Lovenox) 40 mg DAILY SC 03/31/24 10:00 03/31/24 09:38 Review of Systems Constitutional: Denies fever no chills no feeling of malaise HEENT: Denies headache, ear pain, ear discharges, conjunctivitis, nasal discharge throat pain Cardiovascular: Denies chest pain, palpitation, orthopnea, PND, or pedal edema Respiratory: Denies shortness of breath, cough cough, sputum production, hemoptysis, GI: Denies abdominal pain, nausea, vomiting, diarrhea, hematemesis, hematochezia, : Denies frequency, urgency, hematuria, Endocrine: Denies unintentional weight gain or weight loss, feeling of hot flashes, Twan: Denies easy bruising, bleeding disorders, epistaxis Musculoskeletal: Denies joint pains, muscle aches Psych: No evidence of depression, germain, suicidal ideation Vital Signs Vital Signs Date Time Temp Pulse Resp B/P (MAP) Pulse Ox O2 Delivery O2 Flow Rate FiO2 03/31/24 16:42 98.1 85 17 119/80 (93) 95 98.1 03/31/24 08:00 Room Air* 0 21 Physical Exam General examination- Not in acute distress, just anxious HEENT: PEERLA, no acute nasal discharge Chest: S1-S2 audible, rate and rhythm regular, no murmur Lung: CTAB, no wheeze or rhonchi Abdomen: Nondistend, BS+, nontenderness, no organomegaly, lower abdominal mass palpated (? uterine mass) Musculoskeletal: no acute joint swelling or tenderness Lower extremity: Very mild pitting edema bilateral Neurological: cranial nerves intact, no acute dysarthria or dysphagia Psychiatry-- Normal mood and affect, Anxious looking Skin- no acute rash or purpura Labs/Diagnostic Data Labs Test 03/31/24 06:30 03/30/24 12:34 03/30/24 11:30 03/30/24 06:37 Range/Units White Blood Count 5.5 4.4-10.8 10^3/uL Red Blood Count 4.11 4.0-5.20 10^6/uL Hemoglobin 12.1 L 12.2-16.2 g/dL Hematocrit 36.0 36.0-46.0 % Mean Corpuscular Volume 87.6 80.0-100.0 fL Mean Corpuscular Hemoglobin 29.6 28.0-32.0 pg Mean Corpuscular Hemoglobin Concent 33.8 32.0-36.0 g/dL Red Cell Distribution Width 15.8 H 11.8-14.3 % Platelet Count 264 140-450 10^3/uL Mean Platelet Volume 7.0 6.9-10.8 fL Neutrophils (%) (Auto) 62.2 37.0-80.0 % Lymphocytes (%) (Auto) 30.2 10.0-50.0 % Monocytes (%) (Auto) 6.3 0.0-12.0 % Eosinophils (%) (Auto) 0.5 0.0-7.0 % Basophils (%) (Auto) 0.8 0.0-2.0 % Neutrophils # (Auto) 3.4 1.6-8.6 10 ^3/uL Lymphocytes # (Auto) 1.7 0.4-5.4 10 ^3/uL Monocytes # (Auto) 0.3 0-1.3 10 ^3/uL Eosinophils # (Auto) 0 0-0.8 10 ^3/uL Basophils # (Auto) 0 0-0.2 10 ^3/uL Nucleated Red Blood Cells 0.2 % Sodium Level 143 136-145 mmol/L Potassium Level 3.1 L 3.5-5.1 mmol/L Chloride Level 108 H 98-107 mmol/L Carbon Dioxide Level 29 20-31 mmol/L Anion Gap 6 5-15 Blood Urea Nitrogen < 5 L 9-23 mg/dL Creatinine 0.30 L 0.550-1.02 mg/dL Glomerular Filtration Rate Calc 112 >90 mL/min BUN/Creatinine Ratio 16.7 10.0-20.0 Serum Glucose 96 74-106 mg/dL Calcium Level 8.0 L 8.7-10.4 mg/dL Total Bilirubin 0.4 0.2-1.0 mg/dL Direct Bilirubin 0.1 <0.3 mg/dL Aspartate Amino Transferase (AST) 216 H 13-40 U/L Alanine Aminotransferase (ALT) 227 H 7-40 U/L Alkaline Phosphatase 60 46-116 U/L Creatine Kinase 2969 H 34-145 U/L Total Protein 4.8 L 5.7-8.2 g/dL Albumin 2.6 L 3.2-4.8 g/dL Vitamin B12 Level 206 L 211-911 pg/mL Vitamin D 25-Hydroxy 24.8 L 30.0-100 ng/mL Free Thyroxine (T4) Calculated 1.06 0.89-1.76 ng/dL Urine Color Light-yellow Yellow Urine Clarity Clear Clear Urine pH 7.5 5.0-9.0 Urine Specific [place] 1.009 1.001-1.035 Urine Protein Negative Negative Urine Ketones Negative Negative Urine Blood 1+ H Negative /uL Urine Nitrite Negative Negative Urine Bilirubin Negative Negative Urine Urobilinogen Normal Negative mg/dL Urine Leukocyte Esterase Negative Negative /uL Urine RBC 2 0 - 4 /hpf Urine WBC 4 0 - 5 /hpf Urine Squamous Epithelial Cells Few <5 /hpf Urine Bacteria Few H None Seen /hpf Urine Mucus Few None Seen Urine Creatinine 17.45 L 30.0-125.0 mg/dL Urine Protein/Creatinine Ratio 1.00 Urine Sodium 143 40-220 mmol/L Urine Glucose Normal Normal mg/dL Urine Total Protein 17.5 H 1-14 mg/dL Urine Opiates Screen Neg NEGATIVE Urine Fentanyl Screen Neg NEGATIVE Urine Barbiturates Screen Neg NEGATIVE Urine Phencyclidine Screen Neg NEGATIVE Urine Amphetamines Screen Neg NEGATIVE Urine Benzodiazepines Screen Neg NEGATIVE Urine Cocaine Screen Neg NEGATIVE Urine Cannabinoids Screen Neg NEGATIVE Hemoglobin A1c 5.8 H <5.7 % A1C Phosphorus Level 3.5 2.4-5.1 mg/dL Magnesium Level 2.0 1.6-2.6 mg/dL Thyroid Stimulating Hormone (TSH) 3.73 0.55-4.78 uIU/mL Test 03/29/24 18:01 03/29/24 15:19 Range/Units Troponin I High Sensitivity 38 *H </=34 ng/L Triglycerides Level 149 < 150 mg/dL Cholesterol Level 195 < 200 mg/dL LDL Cholesterol 115 H < 100 mg/dL HDL Cholesterol 61 H 40-59 mg/dL Microbiology Date/Time Source Procedure Growth Status 03/29/24 23:35 Nose MRSA Screen - Final Complete Assessment Syncopal episode ( 2x) rule out coronary ischemia --> Vicki scan stress test Rule out Orthostatic hypotension --> orthostatic vitals Possible vasovagal episode --> fall risk precaution Rule out Bradytachy arrhythmias -->Monitor for Ekg changes on Tele --> Consider out patient event monitors Rule out autonomic dysfunction --> Continue neurological recommendations --> Neurology following Carotid stenosis ruled out --> carotid duplex was unremarkable Elevated liver enzymes Rhabdomyolysis Thank you for allowing us to participate in the care of this patient. Please call if you have any questions or concerns. Plan discussed with: Patient Visit Coding Cardiology RES Date of Service: Mar 31, 2024 Billing Provider: EVERTON GUEVARA MD Cardiology Common Codes: [id number] INP/OBS CARE (High) Cardiology Consultation Codes: [id number] CONSULT <45MIN MARQUITA VILA RESIDENT Mar 31, 2024 17:18
--- NOTE | 2024-04-01 17:52 | DVHDSRES ---
Discharge Summary Date of Admission Resident Creating Document: NORBERT CASPER RESIDENT Mar 29, 2024 at 15:07 Date of Discharge: Mar 31, 2024 Admitting Diagnosis Rhabdomyolysis Labs/Diagnostic Data: Laboratory Results Test 03/31/24 06:30 03/30/24 12:34 03/30/24 11:30 03/30/24 06:37 White Blood Count 5.5 10^3/uL (4.4-10.8) Red Blood Count 4.11 10^6/uL (4.0-5.20) Hemoglobin 12.1 g/dL (12.2-16.2) Hematocrit 36.0 % (36.0-46.0) Mean Corpuscular Volume 87.6 fL (80.0-100.0) Mean Corpuscular Hemoglobin 29.6 pg (28.0-32.0) Mean Corpuscular Hemoglobin Concent 33.8 g/dL (32.0-36.0) Red Cell Distribution Width 15.8 % (11.8-14.3) Platelet Count 264 10^3/uL (140-450) Mean Platelet Volume 7.0 fL (6.9-10.8) Neutrophils (%) (Auto) 62.2 % (37.0-80.0) Lymphocytes (%) (Auto) 30.2 % (10.0-50.0) Monocytes (%) (Auto) 6.3 % (0.0-12.0) Eosinophils (%) (Auto) 0.5 % (0.0-7.0) Basophils (%) (Auto) 0.8 % (0.0-2.0) Neutrophils # (Auto) 3.4 10 ^3/uL (1.6-8.6) Lymphocytes # (Auto) 1.7 10 ^3/uL (0.4-5.4) Monocytes # (Auto) 0.3 10 ^3/uL (0-1.3) Eosinophils # (Auto) 0 10 ^3/uL (0-0.8) Basophils # (Auto) 0 10 ^3/uL (0-0.2) Nucleated Red Blood Cells 0.2 % Sodium Level 143 mmol/L (136-145) Potassium Level 3.1 mmol/L (3.5-5.1) Chloride Level 108 mmol/L (98-107) Carbon Dioxide Level 29 mmol/L (20-31) Anion Gap 6 (5-15) Blood Urea Nitrogen < 5 mg/dL (9-23) Creatinine 0.30 mg/dL (0.550-1.02) Glomerular Filtration Rate Calc 112 mL/min (>90) BUN/Creatinine Ratio 16.7 (10.0-20.0) Serum Glucose 96 mg/dL (74-106) Calcium Level 8.0 mg/dL (8.7-10.4) Total Bilirubin 0.4 mg/dL (0.2-1.0) Direct Bilirubin 0.1 mg/dL (<0.3) Aspartate Amino Transferase (AST) 216 U/L (13-40) Alanine Aminotransferase (ALT) 227 U/L (7-40) Alkaline Phosphatase 60 U/L (46-116) Creatine Kinase 2969 U/L (34-145) Total Protein 4.8 g/dL (5.7-8.2) Albumin 2.6 g/dL (3.2-4.8) Vitamin B12 Level 206 pg/mL (211-911) Vitamin D 25-Hydroxy 24.8 ng/mL (30.0-100) Free Thyroxine (T4) Calculated 1.06 ng/dL (0.89-1.76) Urine Color Light-yellow (Yellow) Urine Clarity Clear (Clear) Urine pH 7.5 (5.0-9.0) Urine Specific [place] 1.009 (1.001-1.035) Urine Protein Negative (Negative) Urine Ketones Negative (Negative) Urine Blood 1+ /uL (Negative) Urine Nitrite Negative (Negative) Urine Bilirubin Negative (Negative) Urine Urobilinogen Normal mg/dL (Negative) Urine Leukocyte Esterase Negative /uL (Negative) Urine RBC 2 /hpf (0 - 4) Urine WBC 4 /hpf (0 - 5) Urine Squamous Epithelial Cells Few /hpf (<5) Urine Bacteria Few /hpf (None Seen) Urine Mucus Few (None Seen) Urine Creatinine 17.45 mg/dL (30.0-125.0) Urine Protein/Creatinine Ratio 1.00 Urine Sodium 143 mmol/L (40-220) Urine Glucose Normal mg/dL (Normal) Urine Total Protein 17.5 mg/dL (1-14) Urine Opiates Screen Neg (NEGATIVE) Urine Fentanyl Screen Neg (NEGATIVE) Urine Barbiturates Screen Neg (NEGATIVE) Urine Phencyclidine Screen Neg (NEGATIVE) Urine Amphetamines Screen Neg (NEGATIVE) Urine Benzodiazepines Screen Neg (NEGATIVE) Urine Cocaine Screen Neg (NEGATIVE) Urine Cannabinoids Screen Neg (NEGATIVE) Hemoglobin A1c 5.8 % A1C (<5.7) Phosphorus Level 3.5 mg/dL (2.4-5.1) Magnesium Level 2.0 mg/dL (1.6-2.6) Thyroid Stimulating Hormone (TSH) 3.73 uIU/mL (0.55-4.78) Test 03/29/24 18:01 03/29/24 15:19 Troponin I High Sensitivity 38 ng/L (</=34) Triglycerides Level 149 mg/dL (< 150) Cholesterol Level 195 mg/dL (< 200) LDL Cholesterol 115 mg/dL (< 100) HDL Cholesterol 61 mg/dL (40-59) Other Laboratory Tests 03/31/24 06:30 Brief Hx & Hospital Course: HPI: The patient, a 74-year-old female with a history of hyperlipidemia and rhabdomyolysis, presented following a syncopal episode, preceded by a bowel movement, which was followed by a blank stare lasting approximately 10 minutes. She reported ongoing dizziness, tingling, and weakness in her extremities, rendering her unable to care for herself without assistance. Hospital Course: Her medical history includes prior rhabdomyolysis diagnosed after initiating atorvastatin one year ago, which prompted discontinuation of the medication. Six weeks prior to admission, during a wellness checkup, persistently elevated liver function tests (LFTs) were noted, leading to a hospitalization where she underwent IVIG therapy for three days. Following her treatment, she was discharged to a rehabilitation facility for two weeks before returning home. During this hospitalization, the patient denied chest pain, shortness of breath, abdominal pain, nausea, or trauma. However, she continued to report weakness and dizziness. Neurology evaluated her for generalized weakness and ruled out critical conditions such as myositis, autoimmune disease, or infectious myopathy as causes of her symptoms. Nephrology was consulted to monitor creatine kinase levels and assess for rhabdomyolysis recurrence or secondary myopathies. The patients care plan included ongoing monitoring of her electrolyte and renal function, with imaging and electrodiagnostic studies to further evaluate her symptoms. counseling services manager coordinated transfer to [facility]. From [facility] called to inform that a bed was available for patient in [facility] bed 4110A, and transportation would arrive at 8PM 03/31/24 to pharmacy picking technician the patient. Disposition: Transfer to [facility]. case discussed with Operations or Procedures [facility] [id number] [facility] [id number] Ph: [phone] DIAGNOSTIC IMAGING Diagnostic Imaging Report : [id number] Signed PATIENT: SIERRA JAVED ACCT: [id number] UNIT: [id number] : 1950 LOC: [facility]LE-CENTR [facility] AGE / SEX: 74 / F ADM STATUS: ADM IN SERVICE 1414 ORDERING PHYSICIAN: NORBERT CASPER RESIDENT PROCEDURE(s): CARCL - CAROTID DUPLX W COLOR DOP REASON: syncope ORDER NUMBER(s): [id number], ACCESSION NUMBER(s): [id number] CAROTID DOPPLER ULTRASOUND HISTORY: syncope COMPARISON: None TECHNIQUE: Real time lovelace scale, color Doppler, and spectral duplex images are obtained through the carotid and vertebral arteries. Findings: Peak systolic velocity right internal carotid artery is 109 cm/s and right common carotid artery is 96 cm/s. Ratio is 1.1. Antegrade flow noted in right vertebral artery. No significant atherosclerotic plaque noted within the right carotid arterial system. Peak systolic velocity left internal carotid artery is 96 cm/s and left common carotid artery is 80 cm/s. Ratio is 1.2. Antegrade flow noted in left vertebral artery. No significant atherosclerotic plaque noted within the left carotid arterial system. Impression: 1. No evidence of hemodynamically significant stenosis within the bilateral carotid arterial systems. 2. Antegrade flow within bilateral vertebral arteries. ATED BY: PINKY RAHMAN DO DICTATED DATE/TIME: 03/30/24 1605 SIGNED BY: PINKY RAHMAN DO SIGNED DATE/TIME: 03/30/24 1605 CC: Condition at Discharge: Fair Final Diagnosis/Problems List Generalized weakness likely due to polymyositis, GBS ruled out Acute rhabdomyolysis likely due to prolonged immobilization NSTEMI type 2 Hyperlipidemia Status post syncope transaminitis Discharge Disposition: [facility] Discharge Will this Physician continue t: No Discharge Instruct/Medications Diet: Cardiac 2g Na,low cholest Activity: No Restrictions, As Tolerated Medications: Per transfer paper medicine Discharge Statement: "Patient was advised to return to the ER or call 911 if any headaches, dizziness, shortness of breath, chest pain, abdominal pain, bleeding, fevers, or worsening of medical condition. Patient was counseled about treatment plan, medications, possible side effects, patientverbalized understanding. All questions were answered to the best of my ability. This discharge took greater then 30 minutes in planning, reviewing documentation, counseling the patient, and discussing with other team members." ASSESSMENT ASSESSMENT Assessment Acute rhabdomyolysis NSTEMI type 2 Date of Service: Mar 31, 2024 Billing Provider: KELLY ARIZA MD Common Visit Codes: [id number] DISCH DAY >30min NORBERT CASPER RESIDENT Apr 01, 2024 17:52 KELLY ARIZA MD Apr 01, 2024 20:19
== END 2024-03-31 20:35 | disposition short-term general hospital (02) | DRG 545 ==
LOC: EDBD 09:15 → ER 09:15 → TELE 15:07 → TELE-CENTR 23:00
PROVIDERS: ADMIT Internal Medicine Geriatric Medicine; ATTEND Emergency Medicine
DX: M33.20 Polymyositis, organ involvement unspecified (principal); I21.A1 Myocardial infarction type 2; G82.20 Paraplegia, unspecified; I95.1 Orthostatic hypotension; R74.01 Elevation of levels of liver transaminase levels; E78.5 Hyperlipidemia, unspecified; Z99.3 Dependence on wheelchair; Z80.0 Family history of malignant neoplasm of digestive organs; Z82.0 Family history of epilepsy and other diseases of the nervous system; Z80.49 Family history of malignant neoplasm of other genital organs; Z63.4 Disappearance and death of family member; Z83.3 Family history of diabetes mellitus
CPT/HCPCS: 36415; 80048; 80053; 80061; 80076; 80307; 81001; 82306; 82550; 82570; 82607; 83036; 83735; 84100; 84156; 84300; 84439; 84443; 84484; 85025; 87081; 93005; 93306; 93886; 97163; 99291; 99292; G0378

== ENCOUNTER 2024-04-12 10:24 | Emergency (ER) | payer OTHER, MEDICAID ==
[~2024-04-12] VITALS: Ht 160 cm; Wt 60.0 kg
[~2024-04-12 10:24] MED LIST: CYAN100056 PO; OMEP1CAP70 PO; ONDA-188 PO; POLY335015 PO; PRED20TA2 PO
--- NOTE | 2024-04-12 11:00 | ED.PDOC ---
HPI (NEURO) HPI Comments HPI: Poor Historian. 74-year-old female brought in from home by ambulance for with a syncopal episode by the daughter. Patient was sitting on the toilet and began to feel lightheaded. She called for her daughter. Her daughter came and tried to assist her but she said that the patient completely passed out. Patient does not remember passing out but she remembers calling her daughter for help. When EMS arrived they noticed that the patient is very dizzy lightheaded however all her vital signs were stable. They said that the same thing happened approximately a week ago and she was admitted to [place] facility and was discharged home and she has been doing well for about a week until today when t his happened. Patient denies any acute pain. She complains of generalized weakness. No other associated symptoms. VITALS: T: HR:76 RR:16 O2:96 BP:115/72 SOCIAL HX: DENIES TOBACCO USAGE, ETOH CONSUMPTION, OR ILLICIT DRUG USE SHX: DENIES ALL PMHX: DENIES ALL MEDICATIONS: PT RELAYS THAT SHE IS ON MEDICATIONS HOWEVER IS UNKNOWN TO WHAT KIND ALLERGIES: NKA REVIEW OF SYSTEMS: CONSTITUTIONAL: Denies acute: fever, diaphoresis, chills, HEAD: Denies acute: headache, photophobia Eyes: Denies acute: Double vision, vision loss, eye pain, eye discharge. EARS: Denies acute: tinnitus, hearing loss, ear discharge, ear pain, THROAT: Denies acute: sore throat, swelling, difficulty swallowing , pain with swallowing, change in voice. NECK: Denies acute: neck pain, neck swelling, stiff neck. HEART: Denies acute : chest pain, palpitations, LUNGS: Denies acute: SOB, wheezing, cough, hemoptysis ABDOMEN: Denies acute: abdominal pain, Nausea, Vomiting, diarrhea, melena , hematemesis, hematochezia SKIN: Denies acute: rash, redness, lesions, itchiness. EXTREMITIES: Denies acute: calf pain, numbness, tingling, weakness, denies pain in extremity. Denies acute: Low back pain. Neuro: Denies acute: focal neurological deficit, motor or sensory focal neurological deficit, tremors, seizure like activity, confusion, change in mental status, loss of bowel or bladder function, cauda equina like symptoms. : Denies acute: dysuria, hematuria, flank pain, increase in urinary frequency. PSYCH: Denies acute: hallucination, suicidal ideation, homicidal ideation. FEMALE: Denies acute: abnormal vaginal bleeding, foul odor, unusual discharge. PHYSICAL EXAM: General: no acute distress, awake and alert. Head: normocephalic, atraumatic. Neck: supple, trachea is midline, no swelling. Throat: Normal phonation. Eyes:, no erythema, no purulent discharge, no proptosis, no icterus. Heart: regular rate, regular rhythm, no significant murmur appreciated. Lungs: no apparent respiratory distress, Able to speak in full sentences. No wheezing, no rhonchi, no crackles. No stridors Clear to auscultation bilaterally. Abdomen: non tender to palpation, non distended, soft, no guarding, no rebound, + bowel sounds. Neuro: Awake, Alert, oriented to name, self, situation, follows commands GCS=15. Speech is normal. Skin: no petechia, no purpura, no cyanosis, non-pale, not jaundice. Lower extremities: --no - Pitting edema no deformity, no focal swelling, no calf TTP. Makes eye contact. moves all four extremities. Face: no apparent facial droop. No nuchal rigidity, Kernig's sign, Brudzinski's sign, no meningeal signs. Chief Complaint: Syncope Time Seen by MD: 10:30 Primary Care Provider: ROSEY Reviewed Notes: Nurses Notes, Medications, Allergies Information Source: Patient, Emergency Med Personnel Mode of Arrival: EMS Severity: Mild Headache Severity: None Timing: Minutes Duration: Since onset Prehospital treatment: Accucheck Onset: At rest Circumstances: Spontaneous Symptoms: Faintness, Syncope Before: Normal During: LOC History of: None Modifying factors: Nothing Associated Signs and Symptoms: None Was a procedure done? Was a procedure done?: No X-Ray, Labs, Meds, VS Vital Signs Date Time Temp Pulse Resp B/P (MAP) Pulse Ox O2 Delivery O2 Flow Rate FiO2 04/12/24 10:29 97.9 74 16 126/68 (87) 96 04/12/24 10:29 78 Lab Test 04/12/24 12:38 04/12/24 12:14 04/12/24 11:13 Range/Units Lactic Acid Level Pending 2.2 *H 0.4-2.0 mmol/L Troponin I High Sensitivity Pending 70 *H </=34 ng/L White Blood Count 13.8 H 4.4-10.8 10^3/uL Red Blood Count 5.14 4.0-5.20 10^6/uL Hemoglobin 14.9 12.2-16.2 g/dL Hematocrit 45.8 36.0-46.0 % Mean Corpuscular Volume 89.1 80.0-100.0 fL Mean Corpuscular Hemoglobin 29.0 28.0-32.0 pg Mean Corpuscular Hemoglobin Concent 32.5 32.0-36.0 g/dL Red Cell Distribution Width 16.7 H 11.8-14.3 % Platelet Count 319 140-450 10^3/uL Mean Platelet Volume 7.5 6.9-10.8 fL Neutrophils (%) (Auto) 76.4 37.0-80.0 % Lymphocytes (%) (Auto) 17.4 10.0-50.0 % Monocytes (%) (Auto) 5.1 0.0-12.0 % Eosinophils (%) (Auto) 0.1 0.0-7.0 % Basophils (%) (Auto) 1.0 0.0-2.0 % Neutrophils # (Auto) 10.5 H 1.6-8.6 10 ^3/uL Lymphocytes # (Auto) 2.4 0.4-5.4 10 ^3/uL Monocytes # (Auto) 0.7 0-1.3 10 ^3/uL Eosinophils # (Auto) 0 0-0.8 10 ^3/uL Basophils # (Auto) 0.1 0-0.2 10 ^3/uL Nucleated Red Blood Cells 0.1 % Sodium Level 140 136-145 mmol/L Potassium Level 3.5 3.5-5.1 mmol/L Chloride Level 102 98-107 mmol/L Carbon Dioxide Level 31 20-31 mmol/L Anion Gap 7 5-15 Blood Urea Nitrogen 11 9-23 mg/dL Creatinine 0.50 L 0.550-1.02 mg/dL Glomerular Filtration Rate Calc 99 >90 mL/min BUN/Creatinine Ratio 22.0 H 10.0-20.0 Serum Glucose 142 H 74-106 mg/dL Calcium Level 9.6 8.7-10.4 mg/dL Magnesium Level 2.0 1.6-2.6 mg/dL Total Bilirubin 0.4 0.2-1.0 mg/dL Aspartate Amino Transferase (AST) 185 H 13-40 U/L Alanine Aminotransferase (ALT) 261 H 7-40 U/L Alkaline Phosphatase 97 46-116 U/L Creatine Kinase 1864 H 34-145 U/L Total Protein 7.8 5.7-8.2 g/dL Albumin 3.7 3.2-4.8 g/dL Current Medications Medications (Trade) Dose Ordered Sig/Fareed Route Start Time Stop Time Status Last Admin Sodium Chloride 1,000 ml @ 1,000 mls/hr Q1H ONCE IV 04/12/24 12:30 04/12/24 13:29 04/12/24 13:17 Aspirin 325 mg ONCE ONCE PO 04/12/24 12:30 04/12/24 12:31 DC 04/12/24 13:16 [place] [address] Ph: [phone] DIAGNOSTIC IMAGING Diagnostic Imaging Report : [id number] Signed PATIENT: SIERRA JAVED ACCT: [id number] UNIT: [id number] : 1950 LOC: ER ROOM / BED: / AGE / SEX: 74 / F ADM STATUS: REG ER SERVICE 1050 ORDERING PHYSICIAN: ROXANA GREY DO PROCEDURE(s): CXRP - CHEST PORTABLE REASON: syncope ORDER NUMBER(s): [id number], ACCESSION NUMBER(s): [id number] CHEST PORTABLE, HISTORY: syncope COMPARISON: None None TECHNICAL DATA: 1 view of the chest was obtained. FINDINGS: Lines and tubes: None Cardiomediastinal silhouette: normal Pulmonary vasculature: normal Lung expansion: normal Lung airspace: normal Lung interstitium: normal Pleura: normal Pneumothorax: no Bones: Unremarkable Other: no IMPRESSION: No acute intrathoracic abnormality. ATED BY: TYRELL ONTIVEROS MD DICTATED DATE/TIME: 04/12/241122 SIGNED BY: TYRELL ONTIVEROS MD SIGNED DATE/TIME: 04/12/241122 CC: [place] [address] Ph: [phone] DIAGNOSTIC IMAGING Diagnostic Imaging Report : [id number] Signed PATIENT: SIERRA JAVED ACCT: [id number] UNIT: [id number] : 1950 LOC: ER ROOM / BED: / AGE / SEX: 74 / F ADM STATUS: REG ER SERVICE 1050 ORDERING PHYSICIAN: ROXANA GREY DO PROCEDURE(s): HWOCT - HEAD WITHOUT CONTRAST REASON: syncope ORDER NUMBER(s): [id number], ACCESSION NUMBER(s): [id number] EXAM: CT HEAD WITHOUT CONTRAST INDICATION: syncope TECHNIQUE: CT of the head without intravenous contrast. Coronal and sagittal reformatted images are submitted. Radiation Dose : 1. Head: CT Dose: CTDI volume is 52.5 mGy. Dose-length product is 735.12 mGy*cm The dose indicators for CT are the volume Computed Tomography (CT) Dose Index (CTDIvol) and the Dose Length Product (DLP), and are measured in units of mGy and mGy-cm, respectively. These indicators are not patient dose, but values generated from the CT scanner acquisition factors. The report includes radiation exposure data for exposures received during this examination. All CT scans at this medical facility are performed using dose modulation techniques as appropriate to a performed exam including the following: Automated exposure control was utilized; adjustment of the MA and/or KV according to patient size; and use of iterative reconstruction technique. COMPARISON: None FINDINGS: There is no evidence of acute intracranial hemorrhage, extra-axial collection, mass effect, midline shift, herniation or hydrocephalus. The ventricles, sulci and cisterns are age appropriate. The lovelace-white differentiation is intact. The visualized paranasal sinuses and mastoid air cells are clear. No depressed calvarial fracture. The surrounding soft tissues are unremarkable. IMPRESSION: 1. No evidence of acute intracranial abnormality. ATED BY: JAMAAL OJEDA MD DICTATED DATE/TIME: 04/12/241203 SIGNED BY: JAMAAL OJEDA MD SIGNED DATE/TIME: 04/12/241203 CC: Time of 1ST Reevaluation: 11:00 Reevaluation 1ST: Unchanged Time of 2ND Reevaluation: 13:24 (The case was discussed with the [place] admitting team (HPI, physical exam, labs and diagnostic tests that were available at the time of disposition, ED course, treatment plan) on the phone. They agreed to transfer the patient to their facility for further evaluation and treatment. Authorization number is [id number] Dr. 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 ) Patient Education/Counseling: Diagnosis, Treatment Comments 74-year-old female brought in from home by ambulance for with a syncopal episode by the daughter. Patient was found with the above mentioned diagnosis. the following medications were ordered: NONE the following tests were ordered: EKG, CT, CXR, LABS Patient ED course and VS have been stabilized. Patient has been reassessed in the ED and remained in a stable condition. Pertinent incidental findings were discussed with the patient and/or family. Patient/family voices understanding and is agreeable with plan. Patient has been observed in the ED adequate length of time to insure improvement/stability. Escalation of care considered: Consideration of escalation to observation or admission Patient was TRANSFERRED to [facility] to medicine team for further evaluation and treatment of their presentation. All the reports of any imaging studies that were ordered by myself were reviewed by myself. Departure 1 Departure Time of Disposition: 13:24 Impression: Primary Impression: Rhabdomyolysis Additional Impressions: Syncope and collapse Elevated troponin Elevated LFTs Disposition: 02 SHORT TERM HOSPITAL Admit to: [facility] Condition: Guarded Additional Instructions: [place] [address] Ph: [phone] DIAGNOSTIC IMAGING Diagnostic Imaging Report : [id number] Signed PATIENT: SIERRA JAVED ACCT: [id number] UNIT: [id number] : 1950 LOC: ER ROOM / BED: / AGE / SEX: 74 / F ADM STATUS: REG ER SERVICE 1050 ORDERING PHYSICIAN: ROXANA GREY DO PROCEDURE(s): CXRP - CHEST PORTABLE REASON: syncope ORDER NUMBER(s): [id number], ACCESSION NUMBER(s): [id number] CHEST PORTABLE, HISTORY: syncope COMPARISON: None None TECHNICAL DATA: 1 view of the chest was obtained. FINDINGS: Lines and tubes: None Cardiomediastinal silhouette: normal Pulmonary vasculature: normal Lung expansion: normal Lung airspace: normal Lung interstitium: normal Pleura: normal Pneumothorax: no Bones: Unremarkable Other: no IMPRESSION: No acute intrathoracic abnormality. ATED BY: TYRELL ONTIVEROS MD DICTATED DATE/TIME: 04/12/241122 SIGNED BY: TYRELL ONTIVEROS MD SIGNED DATE/TIME: 04/12/241122 CC: [place] [address] Ph: [phone] DIAGNOSTIC IMAGING Diagnostic Imaging Report : [id number] Signed PATIENT: SIERRA JAVED ACCT: [id number] UNIT: [id number] : 1950 LOC: ER ROOM / BED: / AGE / SEX: 74 / F ADM STATUS: REG ER SERVICE 1050 ORDERING PHYSICIAN: ROXANA GREY DO PROCEDURE(s): HWOCT - HEAD WITHOUT CONTRAST REASON: syncope ORDER NUMBER(s): [id number], ACCESSION NUMBER(s): [id number] EXAM: CT HEAD WITHOUT CONTRAST INDICATION: syncope TECHNIQUE: CT of the head without intravenous contrast. Coronal and sagittal reformatted images are submitted. Radiation Dose : 1. Head: CT Dose: CTDI volume is 52.5 mGy. Dose-length product is 735.12 mGy*cm The dose indicators for CT are the volume Computed Tomography (CT) Dose Index (CTDIvol) and the Dose Length Product (DLP), and are measured in units of mGy and mGy-cm, respectively. These indicators are not patient dose, but values gen erated from the CT scanner acquisition factors. The report includes radiation exposure data for exposures received during this examination. All CT scans at this medical facility are performed using dose modulation techniques as appropriate to a performed exam including the following: Automated exposure control was utilized; adjustment of the MA and/or KV according to patient size; and use of iterative reconstruction technique. COMPARISON: None FINDINGS: There is no evidence of acute intracranial hemorrhage, extra-axial collection, mass effect, midline shift, herniation or hydrocephalus. The ventricles, sulci and cisterns are age appropriate. The lovelace-white differentiation is intact. The visualized paranasal sinuses and mastoid air cells are clear. No depressed calvarial fracture. The surrounding soft tissues are unremarkable. IMPRESSION: 1. No evidence of acute intracranial abnormality. ATED BY: JAMAAL OJEDA MD DICTATED DATE/TIME: 04/12/24 1204 SIGNED BY: JAMAAL OJEDA MD SIGNED DATE/TIME: 04/12/24 1204 CC: Discharged With: Self Critical Care Note Critical Care Time?: No Stability Stability form required: No Heart Score Heart Score: Heart Score Response (Comments) Value History N/A 0 EKG N/A 0 Age N/A 0 Risk Factors N/A 0 Troponin N/A 0 Total 0 I personally scribed for QUE,ROXANA J DO (DVFARMI) on 04/12/24 at 11:00. Electronically submitted by Mandy Cagle ([email or web address]). I personally scribed for QUE,ROXANA J DO (DVFARMI) on 04/12/24 at 11:15. Electronically submitted by Mandy Cagle ([email or web address]). I personally scribed for QUE,ROXANA J DO (DVFARMI) on 04/12/24 at 11:29. Electronically submitted by Mandy Cagle ([email or web address]). I personally scribed for QUE,ROXANA J DO (DVFARMI) on 04/12/24 at 11:38. Electronically submitted by Mandy Cagle ([email or web address]). I personally scribed for QUE,ROXANA J DO (DVFARMI) on 04/12/24 at 11:44. Electronically submitted by Mandy Cagle ([email or web address]). I personally scribed for QUE,ROXANA J DO (DVFARMI) on 04/12/24 at 12:59. Electronically submitted by Mandy Cagle ([email or web address]). I personally scribed for QUE,ROXANA J DO (DVFARMI) on 04/12/24 at 13:21. Electronically submitted by Mandy Cagle ([email or web address]). QUE,ROXANA J DO Apr 12, 2024 11:00
--- NOTE | 2024-04-12 11:25 | DVH ---
XY CHEST PORTABLE, HISTORY: syncope COMPARISON: None None TECHNICAL DATA: 1 view of the chest was obtained. FINDINGS: Lines and tubes: None Cardiomediastinal silhouette: normal Pulmonary vasculature: normal Lung expansion: normal Lung airspace: normal Lung interstitium: normal Pleura: normal Pneumothorax: no Bones: Unremarkable Other: no IMPRESSION: No acute intrathoracic abnormality.
[2024-04-12 11:29] LABS: Basophils # (auto) 0.1 10 ^3/uL (0-0.2); Eosinophils # (auto) 0 10 ^3/uL (0-0.8); Eosinophils % (auto) 0.1 % (0.0-7.0); Hematocrit 45.8 % (36.0-46.0); Hemoglobin 14.9 g/dL (12.2-16.2); Lymphocytes # (auto) 2.4 10 ^3/uL (0.4-5.4); Lymphocytes % (auto) 17.4 % (10.0-50.0); Mean Corpuscular Hgb Conc. 32.5 g/dL (32.0-36.0); Mean Corpuscular Volume 89.1 fL (80.0-100.0); Monocytes # (auto) 0.7 10 ^3/uL (0-1.3); Monocytes % (auto) 5.1 % (0.0-12.0); Neutrophils # (auto) 10.5 10 ^3/uL (1.6-8.6); Neutrophils % (auto) 76.4 % (37.0-80.0); Nucleated Red Blood Cells % 0.1 %; Platelet Count (auto) 319 10^3/uL (140-450); Red Blood Cells 5.14 10^6/uL (4.0-5.20); Red Cell Distribution Width 16.7 % (11.8-14.3); White Blood Cell 13.8 10^3/uL (4.4-10.8)
[2024-04-12 11:46] LABS: Albumin 3.7 g/dL (3.2-4.8); Alkaline Phosphatase 97 U/L (46-116); Anion Gap 7 (5-15); Blood Urea Nitrogen 11 mg/dL (9-23); Calcium 9.6 mg/dL (8.7-10.4); Carbon Dioxide 31 mmol/L (20-31); Chloride 102 mmol/L (98-107); Potassium 3.5 mmol/L (3.5-5.1); Sodium 140 mmol/L (136-145)
[2024-04-12 11:47] LABS: Bilirubin, Total 0.4 mg/dL (0.2-1.0); Total Protein 7.8 g/dL (5.7-8.2)
[2024-04-12 12:03] LABS: Glucose 142 mg/dL (74-106)
[2024-04-12 12:04] LABS: Alanine Aminotransferase 261 U/L (7-40); Aspartate Aminotransferase 185 U/L (13-40); Creatine Kinase IFCC 1864 U/L (34-145)
--- NOTE | 2024-04-12 12:07 | DVH ---
EXAM: CT HEAD WITHOUT CONTRAST INDICATION: syncope TECHNIQUE: CT of the head without intravenous contrast. Coronal and sagittal reformatted images are submitted. Radiation Dose : 1. Head: CT Dose: CTDI volume is 52.5 mGy. Dose-length product is 735.12 mGy*cm The dose indicators for CT are the volume Computed Tomography (CT) Dose Index (CTDIvol) and the Dose Length Product (DLP), and are measured in units of mGy and mGy-cm, respectively. These indicators are not patient dose, but values generated from the CT scanner acquisition factors. The report includes radiation exposure data for exposures received during this examination. All CT scans at this medical facility are performed using dose modulation techniques as appropriate to a performed exam including the following: Automated exposure control was utilized; adjustment of the MA and/or KV according to patient size; and use of iterative reconstruction technique. COMPARISON: None FINDINGS: There is no evidence of acute intracranial hemorrhage, extra-axial collection, mass effect, midline s hift, herniation or hydrocephalus. The ventricles, sulci and cisterns are age appropriate. The lovelace-white differentiation is intact. The visualized paranasal sinuses and mastoid air cells are clear. No depressed calvarial fracture. The surrounding soft tissues are unremarkable. IMPRESSION: 1. No evidence of acute intracranial abnormality.
[2024-04-12 12:11] LABS: Lactic Acid w/Reflex 2.2 mmol/L (0.4-2.0)
[2024-04-12] MEDS: ASPirin 325 MG TAB PO ONE (13:16)
[2024-04-12] MEDS: SODIUM CHLORIDE 0.9% 1,000 ML IV ONE (13:17)
[2024-04-12 19:30] VITALS: PULSE 94; RESP 16; O2SAT 94
[2024-04-12 21:08] VITALS: BP 141/85; PULSE 94; RESP 16; TEMP 98.4; O2SAT 94
--- NOTE | 2024-04-16 13:51 | ECG ---
[facility] Test Date: 2024-04-12 Test Time: 10:29:27 Pat Name: SIERRA JAVED Department: ER Room: Gender: F Cue Selector: SANDRA : 1950 Requested By: ROXANA GREY Order Number: [id number] Reading MD: Yovanny Cade Measurements Intervals [place] Rate: 78 P: -12 MT: 124 QRS: 65 QRSD: 95 T: 9 QT: 430 QTc: 490 Interpretive Statements Sinus rhythm Atrial premature complexes Borderline T abnormalities, inferior leads Electronically Signed On 04-17-2024 9:44:13 PST by Yovanny Cade Please click the below link to view image of tracing.
== END 2024-04-12 21:08 | disposition short-term general hospital (02) ==
LOC: ER 10:24 → EDBD 10:24 → ER 21:08
DX: M62.82 Rhabdomyolysis (principal); R55 Syncope and collapse; R79.89 Other specified abnormal findings of blood chemistry; R74.01 Elevation of levels of liver transaminase levels
CPT/HCPCS: 36415; 70450; 71045; 80053; 82550; 82947; 83605; 83735; 84484; 85025; 93005; 96360; 99284; J7030